=== PATIENT | female | born 1950 | race Two or more races ===

== ENCOUNTER 2018-07-12 17:45 | Inpatient (IN) | payer MEDICARE, OTHER ==
[2018-07-12] MEDS ORDERED: Haloperidol Lactate 5 mg/mL 1mL Vial ONE (18:08)
[2018-07-12 18:43] VITALS: BP 161/109
[2018-07-12] MEDS ORDERED: Haloperidol Lactate 5 mg/mL 1mL Vial IM STA (19:38)
[2018-07-12] MEDS ORDERED: [UNRECOGNIZED DRUG - OTHER] IM PRN ×2 (21:24→21:25)
[2018-07-12 22:54] LABS: URINE SOURCE MIDSTREAM
[2018-07-12 22:58] LABS: URINE BILIRUBIN NEGATIVE (NEGATIVE); URINE BLOOD NEGATIVE (NEGATIVE); URINE GLUCOSE (UA) NEGATIVE (NEGATIVE); URINE KETONE TRACE mg/dL (NEGATIVE); URINE LEUKOCYTE ESTERASE TRACE (NEGATIVE); URINE MICROSCOPIC INDICATED? YES; URINE NITRATE NEGATIVE (NEGATIVE); URINE PH 5.5 (4.6 - 8.0); URINE PROTEIN 100 mg/dL (NEGATIVE); URINE UROBILINOGEN 0.2 E.U./dL (0.2 - 1.0)
[2018-07-12 23:00] LABS: URINE CLARITY CLEAR (CLEAR); URINE COLOR YELLOW
[2018-07-12 23:13] LABS: URINE EPITHELIAL CELLS MODERATE /lpf (FEW); URINE RBC 0-2 /hpf (0-5)
[2018-07-12 23:14] LABS: URINE BACTERIA MODERATE /hpf (NONE SEEN)
--- NOTE | 2018-07-12 23:56 | Psychiatric Evaluation ---
DATE OF SERVICE: 07/12/2018 PSYCHIATRIC EVALUATION IDENTIFYING DATA: The patient is a 67-year-old -[place] woman admitted on a 5150 as a danger to others. CHIEF COMPLAINT: "I don't belong in here, get me out of here right now." HISTORY OF PRESENT ILLNESS: This is the first psychiatric hospitalization to this patient who is reported to have been getting aggressive towards the son and wanted to hurt him. The patient during the interview is not able to calm down and she has been screaming and yelling and the patient has to be medicated with Haldol 5 mg, Ativan 1 and Benadryl 50. The patient has been acting very irrationally and has been urinating on the floor. I am not able to get much information from the patient at this time. PAST PSYCHIATRIC HISTORY: Details are not known. MEDICAL HISTORY AND PHYSICAL EXAMINATION: Requested to be done by Dr. Lara. SUBSTANCE ABUSE HISTORY: Details are not known. SOCIAL HISTORY: The patient is reported to have been with her family. STRENGTH AND ASSETS: The patient is motivated. MENTAL STATUS EXAMINATION: The patient is a 67-year-old woman, looking her stated age, superficially cooperative. Eye contact is poor. Mood is noted to be irritable. Affect is constricted. Insight and judgment at this time are noted to be still impaired. Impulse control is noted to be poor. Coping skills are noted to be poor. The patient has been screaming and yelling and the patient is acutely psychotic and agitated. The patient could not be contained even with the emergency dose of medications. In view of this one, it is decided to observe the patient with the medications and then continue with the mental status examination tomorrow. DIAGNOSTIC IMPRESSION: AXIS I: Psychotic disorder, not otherwise specified. AXIS II: None. AXIS III: As per Dr. Lara. IMMEDIATE TREATMENT PLAN: The patient is going to be observed on the inpatient unit. Provided with supportive psychotherapy. The patient is going to be closely monitored. Once stabilized, the patient is going to be discharged to the family to be followed up on an outpatient basis. JOB# [id number]
[2018-07-13 07:46] LABS: ALB/GLOB RATIO 1.4 (1.0-1.8); ALBUMIN 4.1 gm/dL (3.7-5.3); ALKALINE PHOSPHATASE 69 U/L (34-104); ANION GAP 13.1 (7.0-16.0); BILIRUBIN,TOTAL 0.6 mg/dL (0.3-1.0); BUN - UREA NITROGEN 12 mg/dL (7-25); CALCIUM SERUM 9.7 mg/dL (8.6-10.3); CARBON DIOXIDE 25.8 mEq/L (21.0-31.0); CHLORIDE 101 mEq/L (98-107); CHOLESTEROL 198 mg/dL (<200); GFR AFRICAN-AMERICAN > 60.0 ml/min (>90); GLUCOSE 106 mg/dL (70-105); HDL -HIGH DENSITY LIPOPROTEIN 40 mg/dL (23-92); POTASSIUM SERUM 3.9 mEq/L (3.5-5.1); SGOT 45 U/L (13-39); SGPT/ALT 22 U/L (7-52); SODIUM SERUM 136 mEq/L (136-145); TRIGLYCERIDES 89 mg/dL (<150)
[2018-07-13] MEDS ORDERED: Non-Formulary Item 1 EA (Nifedipine [Nifedipine Er] 60 MG) PO SCH (09:00)
[2018-07-13] MEDS: NIFEdipine 30 mg ER Tab PO SCH (09:32)
--- NOTE | 2018-07-13 12:41 | History & Physical ---
ADMIT DATE: 07/12/2018 CHIEF COMPLAINT: Medical evaluation and clearance. HISTORY OF PRESENT ILLNESS: This is a 67-year-old -[place] female with history of stroke, multi infarct dementia, hypertension, and arthritis, admitted under the service of Dr. Child. The patient denies any fever, chills, no night sweats, weight loss, chest pain. PAST MEDICAL HISTORY: As mentioned in history present illness. PAST SURGICAL HISTORY: Status post left knee surgery. ALLERGIES: No known drug allergies. MEDICATIONS: The patient is on carvedilol, Plavix, Depakote, Lasix, olanzapine. FAMILY HISTORY: Noncontributory. SOCIAL HISTORY: The patient is in senior care. The patient stated that she smokes, drinks on occasion. Single with 4 children. Does a lot of other drugs. REVIEW OF SYSTEMS: GENERAL: Complains not feeling well. HEAD, EYES, EARS, NOSE, AND THROAT: No blurred vision. LUNGS: No diagnosis of COPD or asthma. HEART: Hypertension, history of stroke. ABDOMEN: No nausea, vomiting, or pain. GENITOURINARY: The patient denies increased frequency or dysuria. NEUROLOGIC: Headache. The patient has a history of stroke, no seizures. PSYCHIATRIC: As above. PHYSICAL EXAMINATION: VITAL SIGNS: Blood pressure 108/76, respiration 19, pulse 98, temperature 96, elderly female, appears stated age. NECK: Supple. No mass. LUNGS: Equal breath sounds, few rhonchi. HEART: Regular rate and rhythm. Systolic ejection murmur. ABDOMEN: Soft, globular. EXTREMITIES: Positive excoriation. NEUROLOGIC: Limited. LABORATORY DATA: CBC showed a hemoglobin of 11. Sodium 136, potassium 3.9, BUN 12, creatinine 1.0, blood sugar 106. UA moderate bacteria. ASSESSMENT AND PLAN: CVA, multi infarct dementia, bacteriuria, hypokalemia, which was corrected, anemia, hypertension, osteoarthritis. We will adjust the patient's antihypertensive medication. The patient is on Plavix. The patient is on diuretics. We will correct electrolyte abnormalities. Continue with current care. We will follow closely with you, . JOB# [id number]
[2018-07-13] MEDS ORDERED: NIFEdipine 30 mg ER Tab PO ONE (20:15)
--- NOTE | 2018-07-14 04:26 | Progress Notes ---
DATE: 07/13/2018 PSYCHIATRIC PROGRESS NOTE SUBJECTIVE: Staff was spoken to. The patient is interviewed. Mood is noted to be irritable. Affect is constricted. Insight and judgment are noted to be still impaired. Impulse control is noted to be poor. Coping skills are also noted to be very poor. The patient has been having difficult time to cope with the stress. The patient is screaming and yelling. The patient had to be given an emergency dose of medication yesterday and the patient has been coming down at this time. No side effects to the medications are noted at this time. ASSESSMENT: The patient is still psychotic and impulsive. PLAN: Continue the patient with the current medications and follow up. JOB# [id number]
[2018-07-14] MEDS: NIFEdipine 30 mg ER Tab PO SCH (09:00)
--- NOTE | 2018-07-14 12:08 | Internal Medicine Prog Note ---
Internal Medicine Subjective - Subjective Patient seen and examined:: with staff, chart reviewed Patient is:: awake, verbal, interactive, ambulating, denies any new complaints Patient Complaints of:: headache Per staff patient has:: no adverse event, no episodes of fall, eating well, noncompliant Internal Medicine Objective - Results Result Diagrams: 07/13/18 06:30 Recent Labs: Laboratory Last Values Sodium 136 mEq/L (136-145) 07/13/18 06:30 Potassium 3.9 mEq/L (3.5-5.1) 07/13/18 06:30 Chloride 101 mEq/L (98-107) 07/13/18 06:30 Carbon Dioxide 25.8 mEq/L (21.0-31.0) 07/13/18 06:30 Anion Gap 13.1 (7.0-16.0) 07/13/18 06:30 BUN 12 mg/dL (7-25) 07/13/18 06:30 Creatinine 1.0 mg/dL (0.6-1.2) 07/13/18 06:30 Est GFR ( Amer) > 60.0 ml/min (>90) 07/13/18 06:30 Est GFR (Non-Af Amer) 59.0 ml/min 07/13/18 06:30 BUN/Creatinine Ratio 12.0 07/13/18 06:30 Glucose 106 mg/dL (70-105) H 07/13/18 06:30 Calcium 9.7 mg/dL (8.6-10.3) 07/13/18 06:30 Total Bilirubin 0.6 mg/dL (0.3-1.0) 07/13/18 06:30 AST 45 U/L (13-39) H 07/13/18 06:30 ALT 22 U/L (7-52) 07/13/18 06:30 Alkaline Phosphatase 69 U/L (34-104) 07/13/18 06:30 Total Protein 7.0 gm/dL (6.0-8.3) 07/13/18 06:30 Albumin 4.1 gm/dL (3.7-5.3) 07/13/18 06:30 Globulin 2.9 gm/dL 07/13/18 06:30 Albumin/Globulin Ratio 1.4 (1.0-1.8) 07/13/18 06:30 Triglycerides 89 mg/dL (<150) 07/13/18 06:30 Cholesterol 198 mg/dL (<200) 07/13/18 06:30 LDL Cholesterol Direct 142 mg/dL (75-193) 07/13/18 06:30 HDL Cholesterol 40 mg/dL (23-92) 07/13/18 06:30 Urine Source MIDSTREAM 07/12/18 22:22 Urine Color YELLOW 07/12/18 22:22 Urine Clarity CLEAR (CLEAR) 07/12/18 22:22 Urine pH 5.5 (4.6 - 8.0) 07/12/18 22:22 Ur Specific [place] 1.025 (1.005-1.030) 07/12/18 22:22 Urine Protein 100 mg/dL (NEGATIVE) H 07/12/18 22:22 Urine Glucose (UA) NEGATIVE mg/dL (NEGATIVE) 07/12/18 22:22 Urine Ketones TRACE mg/dL (NEGATIVE) 07/12/18 22:22 Urine Blood NEGATIVE (NEGATIVE) 07/12/18 22:22 Urine Nitrate NEGATIVE (NEGATIVE) 07/12/18 22:22 Urine Bilirubin NEGATIVE (NEGATIVE) 07/12/18 22:22 Urine Urobilinogen 0.2 E.U./dL (0.2 - 1.0) 07/12/18 22:22 Ur Leukocyte Esterase TRACE (NEGATIVE) H 07/12/18 22:22 Urine RBC 0-2 /hpf (0-5) 07/12/18 22:22 Urine WBC 6-10 /hpf (0-5) H 07/12/18 22:22 Ur Epithelial Cells MODERATE /lpf (FEW) 07/12/18 22:22 Urine Bacteria MODERATE /hpf (NONE SEEN) H 07/12/18 22:22 Valproic Acid < 10.0 ug/mL (50.0-100.0) L 07/13/18 06:30 - Physical Exam Vitals and I&O: Vital Signs Temp 97.9 F 07/14/18 06:09 Pulse 86 07/14/18 09:10 Resp 20 07/14/18 06:09 BP 117/66 07/14/18 09:13 Pulse Ox 95 07/14/18 06:09 Intake & Output 07/13/18 07/14/18 07/14/18 18:59 06:59 18:59 Intake Total 360 Balance 360 Intake: Oral 360 Other: # Voids 2 # Bowel Movements 0 Active Medications: Current Medications Carvedilol (Coreg) 6.25 mg PO BIDS [facility] Stop: 09/11/18 07:59 Last Admin: 07/14/18 09:10 Dose: 6.25 mg Clopidogrel Bisulfate (Plavix) 75 mg PO DAILY [facility] Stop: 09/11/18 08:59 Last Admin: 07/14/18 09:14 Dose: 75 mg Divalproex Sodium (Depakote Dr) 250 mg PO BID [facility]; Protocol Stop: 09/11/18 08:59 Last Admin: 07/14/18 09:15 Dose: 250 mg Furosemide (Lasix) 20 mg PO DAILY [facility] Stop: 09/11/18 08:59 Last Admin: 07/14/18 09:13 Dose: 20 mg Gabapentin (Neurontin) 100 mg PO BID [facility] Stop: 09/11/18 08:59 Last Admin: 07/14/18 09:15 Dose: 100 mg Lorazepam (Ativan) 0.5 mg PO Q4HR PRN; Protocol PRN Reason: Anxiety Stop: 08/11/18 19:10 Last Admin: 07/14/18 09:14 Dose: 0.5 mg Miscellaneous (Ziprasidone Mesylate [Geodon]) 10 mg IM Q2HR PRN PRN Reason: Agitation Stop: 09/10/18 21:23 Nifedipine (Procardia Xl) 60 mg PO DAILY [facility] Stop: 09/11/18 08:59 Last Admin: 07/13/18 09:32 Dose: Not Given Olanzapine (Zyprexa) 5 mg PO BID [facility]; Protocol Stop: 09/11/18 08:59 Last Admin: 07/14/18 09:15 Dose: 5 mg Zolpidem Tartrate (Ambien) 5 mg PO HS PRN PRN Reason: Insomnia Stop: 09/10/18 19:10 General: demented HEENT: NC/AT, PERRLA, EOMI Neck: Supple, No JVD, No LAD Lungs: CTAB Cardiovascular: RRR, Normal S1, Normal S2, without murmur Abdomen: soft, non-tender, thin, non-distended, positive bowel sound Extremities: excoriation Neurological: no change Internal Medicine Assmt/Plan - Assessment Assessment: ASSESSMENT AND PLAN: CVA, multi infarct dementia, bacteriuria, hypokalemia, which was corrected, anemia, hypertension, osteoarthritis. - Plan Plan: PLAN: fall precaution We will adjust the patient's antihypertensive medication. The patient is on Plavix. The patient is on diuretics. We will correct electrolyte abnormalities. Continue with current care. We will follow closely
--- NOTE | 2018-07-15 03:39 | Consultation ---
DATE OF CONSULTATION: 07/13/2018 REFERRING PHYSICIAN: Raoul Sultana MD TYPE OF CONSULTATION: Psychology. HISTORY OF PRESENT ILLNESS: The patient is a 67-year-old -[place]og[place] female. The patient is being admitted on a 5150 as a danger to others. The following is by record review as well as by the patient's self report. Records indicate the patient had become aggressive towards her son and verbalized wanting to hurt him. The patient is having severe mood fluctuations during this clinical interview and is difficult to deescalate. The staff reports the patient has had multiple yelling episodes. The patient is not providing much information and is easily agitated and aggressive. The patient did not answer questions about experiencing suicidal or homicidal ideation, plan, or intention. PAST MEDICAL HISTORY: Please see history and physical by Dr. Lara. PAST PSYCHIATRIC HISTORY: Records are unavailable. Details are unknown. SUBSTANCE ABUSE HISTORY: The patient declined to answer these questions. PSYCHOSOCIAL HISTORY: Records indicate the patient had been living with her family. The patient did not answer questions about occupational or educational history. The patient is not answering questions relevantly or coherently and is exhibiting agitation. The record indicates the patient has a family member named Julio who is involved in her care. Records indicate the patient has a son, however, marital status is single. The patient did not answer questions about cheondoism affiliation. The patient did not answer questions about history of physical or sexual abuse or current legal problems. The patient did not answer questions about returning home or accepting placement. MENTAL STATUS EXAMINATION: The patient appears to be older than her stated age. The patient's attitude is uncooperative. Eye contact is poor. Mood is irritable and angry. Speech is loud and pressured. Affect is constricted. Thought process shows to be confused. The patient did not answer questions about experiencing suicidal or homicidal ideation, plan, or intention. She did not answer the questions about auditory or visual hallucinations or delusions. The patient's behavior has been very agitated. The patient is acutely psychotic and was unable to be contained by emergency medication. The patient's impulse control is impaired. Concentration is poor. The patient did not participate in the memory assessment. Sensorium is alert and oriented to self only. The patient did not participate in the interpretation of proverbs. Insight is impaired. Judgment is impaired. DIAGNOSTIC IMPRESSION: AXIS I: Psychotic disorder, not otherwise specified. 2: Impulse control disorder, not otherwise specified. AXIS II: Deferred. AXIS III: Per Dr. Lara. TREATMENT PLAN: The patient has been seen by Dr. Sultana for psychiatric evaluation and for the management of the patient's psychotropic medications. We will provide supportive psychotherapy to include reality orientation, differentiation, and integration. We will provide de-escalation and limit setting. We will provide anger management. We will provide motivational enhancement for the patient to become compliant and stay compliant with all aspects of her care and treatment. We will encourage the patient to demonstrate emotional and self-regulation and to verbalize her concerns versus acting out. We will encourage the patient on a daily basis to verbally contract for safety including no self-harm and no harm to others. We will provide coping strategies phase of life issues as well as for chronic severe mental illness. Thank you, Dr. Sultana, for this consult and the opportunity to participate in this patient's care. [facility]# [id number] JOHNNY
--- NOTE | 2018-07-15 11:45 | Internal Medicine Prog Note ---
Internal Medicine Subjective - Subjective Patient seen and examined:: with staff, chart reviewed Patient is:: awake, verbal, interactive, ambulating, denies any new complaints Patient Complaints of:: headache Per staff patient has:: no adverse event, no episodes of fall, eating well, noncompliant Internal Medicine Objective - Results Result Diagrams: 07/13/18 06:30 Recent Labs: Laboratory Last Values Sodium 136 mEq/L (136-145) 07/13/18 06:30 Potassium 3.9 mEq/L (3.5-5.1) 07/13/18 06:30 Chloride 101 mEq/L (98-107) 07/13/18 06:30 Carbon Dioxide 25.8 mEq/L (21.0-31.0) 07/13/18 06:30 Anion Gap 13.1 (7.0-16.0) 07/13/18 06:30 BUN 12 mg/dL (7-25) 07/13/18 06:30 Creatinine 1.0 mg/dL (0.6-1.2) 07/13/18 06:30 Est GFR ( Amer) > 60.0 ml/min (>90) 07/13/18 06:30 Est GFR (Non-Af Amer) 59.0 ml/min 07/13/18 06:30 BUN/Creatinine Ratio 12.0 07/13/18 06:30 Glucose 106 mg/dL (70-105) H 07/13/18 06:30 Calcium 9.7 mg/dL (8.6-10.3) 07/13/18 06:30 Total Bilirubin 0.6 mg/dL (0.3-1.0) 07/13/18 06:30 AST 45 U/L (13-39) H 07/13/18 06:30 ALT 22 U/L (7-52) 07/13/18 06:30 Alkaline Phosphatase 69 U/L (34-104) 07/13/18 06:30 Total Protein 7.0 gm/dL (6.0-8.3) 07/13/18 06:30 Albumin 4.1 gm/dL (3.7-5.3) 07/13/18 06:30 Globulin 2.9 gm/dL 07/13/18 06:30 Albumin/Globulin Ratio 1.4 (1.0-1.8) 07/13/18 06:30 Triglycerides 89 mg/dL (<150) 07/13/18 06:30 Cholesterol 198 mg/dL (<200) 07/13/18 06:30 LDL Cholesterol Direct 142 mg/dL (75-193) 07/13/18 06:30 HDL Cholesterol 40 mg/dL (23-92) 07/13/18 06:30 Urine Source MIDSTREAM 07/12/18 22:22 Urine Color YELLOW 07/12/18 22:22 Urine Clarity CLEAR (CLEAR) 07/12/18 22:22 Urine pH 5.5 (4.6 - 8.0) 07/12/18 22:22 Ur Specific [place] 1.025 (1.005-1.030) 07/12/18 22:22 Urine Protein 100 mg/dL (NEGATIVE) H 07/12/18 22:22 Urine Glucose (UA) NEGATIVE mg/dL (NEGATIVE) 07/12/18 22:22 Urine Ketones TRACE mg/dL (NEGATIVE) 07/12/18 22:22 Urine Blood NEGATIVE (NEGATIVE) 07/12/18 22:22 Urine Nitrate NEGATIVE (NEGATIVE) 07/12/18 22:22 Urine Bilirubin NEGATIVE (NEGATIVE) 07/12/18 22:22 Urine Urobilinogen 0.2 E.U./dL (0.2 - 1.0) 07/12/18 22:22 Ur Leukocyte Esterase TRACE (NEGATIVE) H 07/12/18 22:22 Urine RBC 0-2 /hpf (0-5) 07/12/18 22:22 Urine WBC 6-10 /hpf (0-5) H 07/12/18 22:22 Ur Epithelial Cells MODERATE /lpf (FEW) 07/12/18 22:22 Urine Bacteria MODERATE /hpf (NONE SEEN) H 07/12/18 22:22 Valproic Acid < 10.0 ug/mL (50.0-100.0) L 07/13/18 06:30 - Physical Exam Vitals and I&O: Vital Signs Temp 97.4 F 07/15/18 06:45 Pulse 64 07/15/18 08:39 Resp 19 07/15/18 06:45 BP 120/65 07/15/18 08:39 Pulse Ox 96 07/15/18 06:45 Intake & Output 07/14/18 07/15/18 07/15/18 18:59 06:59 18:59 Intake Total 900 180 Balance 900 180 Intake: Oral 900 180 Other: # Voids 3 3 # Bowel Movements 1 0 Active Medications: Current Medications Carvedilol (Coreg) 6.25 mg PO BIDS [facility] Stop: 09/11/18 07:59 Last Admin: 07/15/18 08:39 Dose: 6.25 mg Clopidogrel Bisulfate (Plavix) 75 mg PO DAILY [facility] Stop: 09/11/18 08:59 Last Admin: 07/15/18 08:41 Dose: 75 mg Divalproex Sodium (Depakote Dr) 250 mg PO BID [facility]; Protocol Stop: 09/11/18 08:59 Last Admin: 07/15/18 08:36 Dose: 250 mg Furosemide (Lasix) 20 mg PO DAILY [facility] Stop: 09/11/18 08:59 Last Admin: 07/15/18 08:37 Dose: 20 mg Gabapentin (Neurontin) 100 mg PO BID [facility] Stop: 09/11/18 08:59 Last Admin: 07/15/18 08:40 Dose: 100 mg Lorazepam (Ativan) 0.5 mg PO Q4HR PRN; Protocol PRN Reason: Anxiety Stop: 08/11/18 19:10 Last Admin: 07/15/18 08:39 Dose: 0.5 mg Nifedipine (Procardia Xl) 60 mg PO DAILY [facility] Stop: 09/11/18 08:59 Last Admin: 07/14/18 09:00 Dose: 60 mg Olanzapine (Zyprexa) 5 mg PO BID [facility]; Protocol Stop: 09/11/18 08:59 Last Admin: 07/15/18 08:36 Dose: 5 mg Zolpidem Tartrate (Ambien) 5 mg PO HS PRN PRN Reason: Insomnia Stop: 09/10/18 19:10 General: demented HEENT: NC/AT, PERRLA, EOMI Neck: Supple, No JVD, No LAD Lungs: CTAB Cardiovascular: RRR, Normal S1, Normal S2, without murmur Abdomen: soft, non-tender, thin, non-distended, positive bowel sound Extremities: excoriation Neurological: no change Internal Medicine Assmt/Plan - Assessment Assessment: ASSESSMENT AND PLAN: CVA, multi infarct dementia, bacteriuria, hypokalemia, which was corrected, anemia, hypertension, osteoarthritis. - Plan Plan: PLAN: fall precaution We will adjust the patient's antihypertensive medication. The patient is on Plavix. The patient is on diuretics. We will correct electrolyte abnormalities. Continue with current care. We will follow closely
--- NOTE | 2018-07-15 14:45 | Progress Notes ---
DATE: 07/14/2018 SUBJECTIVE: The patient was seen, remains irritable, anxious, still argumentative at times. The patient was asking when she is going home. On the other hand, she is taking her medication. Her sleep and appetite are fair. ASSESSMENT: The patient is still paranoid, still in psychotic phase. PLAN: We will continue Zyprexa 5 mg p.o. b.i.d. and continue current dose of Depakote and gabapentin. JOB# [id number]
--- NOTE | 2018-07-15 23:18 | Progress Notes ---
DATE: 07/15/2018 SUBJECTIVE: The patient was seen, remains restless, anxious, still intrusive, wandering on the unit, require redirecting by staff, continues to have some anger outbursts episodes, she is talking to herself. ASSESSMENT: The patient is in psychotic phase. PLAN: Continue Zyprexa 5 mg p.o. b.i.d. Continue supportive measures. The patient is also on Depakote 250 mg p.o. b.i.d. JOB# [id number]
[2018-07-16] MEDS: NIFEdipine 30 mg ER Tab PO SCH (08:40)
--- NOTE | 2018-07-16 10:32 | Internal Medicine Prog Note ---
Internal Medicine Subjective - Subjective Patient seen and examined:: with staff, chart reviewed Patient is:: awake, verbal, interactive, ambulating, denies any new complaints Patient Complaints of:: headache Per staff patient has:: no adverse event, no episodes of fall, eating well, noncompliant Internal Medicine Objective - Results Result Diagrams: 07/13/18 06:30 Recent Labs: Laboratory Last Values Sodium 136 mEq/L (136-145) 07/13/18 06:30 Potassium 3.9 mEq/L (3.5-5.1) 07/13/18 06:30 Chloride 101 mEq/L (98-107) 07/13/18 06:30 Carbon Dioxide 25.8 mEq/L (21.0-31.0) 07/13/18 06:30 Anion Gap 13.1 (7.0-16.0) 07/13/18 06:30 BUN 12 mg/dL (7-25) 07/13/18 06:30 Creatinine 1.0 mg/dL (0.6-1.2) 07/13/18 06:30 Est GFR ( Amer) > 60.0 ml/min (>90) 07/13/18 06:30 Est GFR (Non-Af Amer) 59.0 ml/min 07/13/18 06:30 BUN/Creatinine Ratio 12.0 07/13/18 06:30 Glucose 106 mg/dL (70-105) H 07/13/18 06:30 Calcium 9.7 mg/dL (8.6-10.3) 07/13/18 06:30 Total Bilirubin 0.6 mg/dL (0.3-1.0) 07/13/18 06:30 AST 45 U/L (13-39) H 07/13/18 06:30 ALT 22 U/L (7-52) 07/13/18 06:30 Alkaline Phosphatase 69 U/L (34-104) 07/13/18 06:30 Total Protein 7.0 gm/dL (6.0-8.3) 07/13/18 06:30 Albumin 4.1 gm/dL (3.7-5.3) 07/13/18 06:30 Globulin 2.9 gm/dL 07/13/18 06:30 Albumin/Globulin Ratio 1.4 (1.0-1.8) 07/13/18 06:30 Triglycerides 89 mg/dL (<150) 07/13/18 06:30 Cholesterol 198 mg/dL (<200) 07/13/18 06:30 LDL Cholesterol Direct 142 mg/dL (75-193) 07/13/18 06:30 HDL Cholesterol 40 mg/dL (23-92) 07/13/18 06:30 Urine Source MIDSTREAM 07/12/18 22:22 Urine Color YELLOW 07/12/18 22:22 Urine Clarity CLEAR (CLEAR) 07/12/18 22:22 Urine pH 5.5 (4.6 - 8.0) 07/12/18 22:22 Ur Specific [place] 1.025 (1.005-1.030) 07/12/18 22:22 Urine Protein 100 mg/dL (NEGATIVE) H 07/12/18 22:22 Urine Glucose (UA) NEGATIVE mg/dL (NEGATIVE) 07/12/18 22:22 Urine Ketones TRACE mg/dL (NEGATIVE) 07/12/18 22:22 Urine Blood NEGATIVE (NEGATIVE) 07/12/18 22:22 Urine Nitrate NEGATIVE (NEGATIVE) 07/12/18 22:22 Urine Bilirubin NEGATIVE (NEGATIVE) 07/12/18 22:22 Urine Urobilinogen 0.2 E.U./dL (0.2 - 1.0) 07/12/18 22:22 Ur Leukocyte Esterase TRACE (NEGATIVE) H 07/12/18 22:22 Urine RBC 0-2 /hpf (0-5) 07/12/18 22:22 Urine WBC 6-10 /hpf (0-5) H 07/12/18 22:22 Ur Epithelial Cells MODERATE /lpf (FEW) 07/12/18 22:22 Urine Bacteria MODERATE /hpf (NONE SEEN) H 07/12/18 22:22 Valproic Acid < 10.0 ug/mL (50.0-100.0) L 07/13/18 06:30 - Physical Exam Vitals and I&O: Vital Signs Temp 97.1 F 07/16/18 06:30 Pulse 83 07/16/18 08:40 Resp 18 07/16/18 06:30 BP 113/69 07/16/18 08:40 Pulse Ox 98 07/16/18 06:30 Intake & Output 07/15/18 07/16/18 07/16/18 18:59 06:59 18:59 Intake Total 1000 240 Balance 1000 240 Intake: Oral 1000 240 Other: # Voids 4 2 # Bowel Movements 1 0 Active Medications: Current Medications Carvedilol (Coreg) 6.25 mg PO BIDS [facility] Stop: 09/11/18 07:59 Last Admin: 07/16/18 08:40 Dose: 6.25 mg Clopidogrel Bisulfate (Plavix) 75 mg PO DAILY [facility] Stop: 09/11/18 08:59 Last Admin: 07/16/18 08:39 Dose: 75 mg Divalproex Sodium (Depakote Dr) 250 mg PO BID [facility]; Protocol Stop: 09/11/18 08:59 Last Admin: 07/16/18 08:39 Dose: 250 mg Furosemide (Lasix) 20 mg PO DAILY [facility] Stop: 09/11/18 08:59 Last Admin: 07/16/18 08:39 Dose: 20 mg Gabapentin (Neurontin) 100 mg PO BID [facility] Stop: 09/11/18 08:59 Last Admin: 07/16/18 08:40 Dose: 100 mg Lorazepam (Ativan) 0.5 mg PO Q4HR PRN; Protocol PRN Reason: Anxiety Stop: 08/11/18 19:10 Last Admin: 07/15/18 20:38 Dose: 0.5 mg Nifedipine (Procardia Xl) 60 mg PO DAILY [facility] Stop: 09/11/18 08:59 Last Admin: 07/16/18 08:40 Dose: 60 mg Olanzapine (Zyprexa) 5 mg PO BID [facility]; Protocol Stop: 09/11/18 08:59 Last Admin: 07/16/18 08:39 Dose: 5 mg Zolpidem Tartrate (Ambien) 5 mg PO HS PRN PRN Reason: Insomnia Stop: 09/10/18 19:10 General: demented HEENT: NC/AT, PERRLA, EOMI Neck: Supple, No JVD, No LAD Lungs: CTAB Cardiovascular: RRR, Normal S1, Normal S2, without murmur Abdomen: soft, non-tender, thin, non-distended, positive bowel sound Extremities: excoriation Neurological: no change Internal Medicine Assmt/Plan - Assessment Assessment: ASSESSMENT AND PLAN: CVA, multi infarct dementia, bacteriuria, hypokalemia, which was corrected, anemia, hypertension, osteoarthritis. - Plan Plan: PLAN: fall precaution We will adjust the patient's antihypertensive medication. The patient is on Plavix. The patient is on diuretics. We will correct electrolyte abnormalities. Continue with current care. We will follow closely
--- NOTE | 2018-07-17 03:29 | Progress Notes ---
DATE: 07/16/2018 SUBJECTIVE: I met with the patient, remains forgetful, confused, still irritable. The patient's appetite and sleep are fair. The patient continues to have poor insight into her problems. The patient's thought process is disorganized and she has some loose association. ASSESSMENT: The patient continues to require hospitalization. PLAN: We will continue Zyprexa and Depakote. Continue supportive measures. [facility]# [id number]
[2018-07-17] MEDS: NIFEdipine 30 mg ER Tab PO SCH (10:01)
--- NOTE | 2018-07-17 10:17 | Internal Medicine Prog Note ---
Internal Medicine Subjective - Subjective Service Date: 07/17/18 Patient is:: awake, verbal, interactive, ambulating, denies any new complaints Patient Complaints of:: headache Per staff patient has:: no adverse event, no episodes of fall, eating well, noncompliant Internal Medicine Objective - Results Result Diagrams: 07/13/18 06:30 Recent Labs: Laboratory Last Values Sodium 136 mEq/L (136-145) 07/13/18 06:30 Potassium 3.9 mEq/L (3.5-5.1) 07/13/18 06:30 Chloride 101 mEq/L (98-107) 07/13/18 06:30 Carbon Dioxide 25.8 mEq/L (21.0-31.0) 07/13/18 06:30 Anion Gap 13.1 (7.0-16.0) 07/13/18 06:30 BUN 12 mg/dL (7-25) 07/13/18 06:30 Creatinine 1.0 mg/dL (0.6-1.2) 07/13/18 06:30 Est GFR ( Amer) > 60.0 ml/min (>90) 07/13/18 06:30 Est GFR (Non-Af Amer) 59.0 ml/min 07/13/18 06:30 BUN/Creatinine Ratio 12.0 07/13/18 06:30 Glucose 106 mg/dL (70-105) H 07/13/18 06:30 Calcium 9.7 mg/dL (8.6-10.3) 07/13/18 06:30 Total Bilirubin 0.6 mg/dL (0.3-1.0) 07/13/18 06:30 AST 45 U/L (13-39) H 07/13/18 06:30 ALT 22 U/L (7-52) 07/13/18 06:30 Alkaline Phosphatase 69 U/L (34-104) 07/13/18 06:30 Total Protein 7.0 gm/dL (6.0-8.3) 07/13/18 06:30 Albumin 4.1 gm/dL (3.7-5.3) 07/13/18 06:30 Globulin 2.9 gm/dL 07/13/18 06:30 Albumin/Globulin Ratio 1.4 (1.0-1.8) 07/13/18 06:30 Triglycerides 89 mg/dL (<150) 07/13/18 06:30 Cholesterol 198 mg/dL (<200) 07/13/18 06:30 LDL Cholesterol Direct 142 mg/dL (75-193) 07/13/18 06:30 HDL Cholesterol 40 mg/dL (23-92) 07/13/18 06:30 Urine Source MIDSTREAM 07/12/18 22:22 Urine Color YELLOW 07/12/18 22:22 Urine Clarity CLEAR (CLEAR) 07/12/18 22:22 Urine pH 5.5 (4.6 - 8.0) 07/12/18 22:22 Ur Specific [place] 1.025 (1.005-1.030) 07/12/18 22:22 Urine Protein 100 mg/dL (NEGATIVE) H 07/12/18 22:22 Urine Glucose (UA) NEGATIVE mg/dL (NEGATIVE) 07/12/18 22:22 Urine Ketones TRACE mg/dL (NEGATIVE) 07/12/18 22:22 Urine Blood NEGATIVE (NEGATIVE) 07/12/18 22:22 Urine Nitrate NEGATIVE (NEGATIVE) 07/12/18 22:22 Urine Bilirubin NEGATIVE (NEGATIVE) 07/12/18 22:22 Urine Urobilinogen 0.2 E.U./dL (0.2 - 1.0) 07/12/18 22:22 Ur Leukocyte Esterase TRACE (NEGATIVE) H 07/12/18 22:22 Urine RBC 0-2 /hpf (0-5) 07/12/18 22:22 Urine WBC 6-10 /hpf (0-5) H 07/12/18 22:22 Ur Epithelial Cells MODERATE /lpf (FEW) 07/12/18 22:22 Urine Bacteria MODERATE /hpf (NONE SEEN) H 07/12/18 22:22 Valproic Acid < 10.0 ug/mL (50.0-100.0) L 07/13/18 06:30 - Physical Exam Vitals and I&O: Vital Signs Temp 97.2 F 07/17/18 06:19 Pulse 86 07/17/18 10:01 Resp 20 07/17/18 06:19 BP 126/83 07/17/18 10:02 Pulse Ox 94 07/17/18 06:19 Intake & Output 07/16/18 07/17/18 07/17/18 18:59 06:59 18:59 Intake Total 1000 660 Balance 1000 660 Intake: Oral 1000 660 Other: # Voids 4 2 # Bowel Movements 1 0 Active Medications: Current Medications Acetaminophen (Tylenol) 650 mg PO Q4H PRN PRN Reason: Pain Or Fever above 101 Stop: 09/14/18 11:31 Last Admin: 07/16/18 14:41 Dose: 650 mg Carvedilol (Coreg) 6.25 mg PO BIDBRS [facility] Stop: 09/11/18 07:59 Last Admin: 07/17/18 10:11 Dose: Not Given Clopidogrel Bisulfate (Plavix) 75 mg PO DAILY [facility] Stop: 09/11/18 08:59 Last Admin: 07/17/18 10:01 Dose: 75 mg Divalproex Sodium (Depakote Dr) 250 mg PO BID [facility]; Protocol Stop: 09/11/18 08:59 Last Admin: 07/17/18 10:01 Dose: 250 mg Furosemide (Lasix) 20 mg PO DAILY [facility] Stop: 09/11/18 08:59 Last Admin: 07/17/18 10:02 Dose: 20 mg Gabapentin (Neurontin) 100 mg PO BID [facility] Stop: 09/11/18 08:59 Last Admin: 07/17/18 10:02 Dose: 100 mg Lorazepam (Ativan) 0.5 mg PO Q4HR PRN; Protocol PRN Reason: Anxiety Stop: 08/11/18 19:10 Last Admin: 07/17/18 10:02 Dose: 0.5 mg Nifedipine (Procardia Xl) 60 mg PO DAILY [facility] Stop: 09/11/18 08:59 Last Admin: 07/17/18 10:01 Dose: 60 mg Olanzapine (Zyprexa) 5 mg PO BID [facility]; Protocol Stop: 09/11/18 08:59 Last Admin: 07/17/18 10:03 Dose: 5 mg Zolpidem Tartrate (Ambien) 5 mg PO HS PRN PRN Reason: Insomnia Stop: 09/10/18 19:10 General: demented HEENT: NC/AT, PERRLA, EOMI Neck: Supple, No JVD, No LAD Lungs: CTAB Cardiovascular: RRR, Normal S1, Normal S2, without murmur Abdomen: soft, non-tender, thin, non-distended, positive bowel sound Extremities: excoriation Neurological: no change Internal Medicine Assmt/Plan - Assessment Assessment: CVA, multi infarct dementia, bacteriuria, hypokalemia, which was corrected, anemia, hypertension, osteoarthritis. - Plan Plan: fall precautions continue current plan of care Nutritional Asmnt/Malnutr-PDOC - Dietary Evaluation Malnutrition Findings (Please click <Entered> for more info): Nutritional Asmnt/Malnutrition Start: 07/16/18 10: 40 Text: Status: Complete Freq: Protocol: Document 07/16/18 10:40 BRAYAN (Rec: 07/16/18 10:43 BRAYAN [email or web address]) Nutritional Asmnt/Malnutrition Patient General Information Nutritional Screening Moderate Risk Diagnosis psychosis Pertinent Medical Hx/Surgical Hx stroke, multi infarct dementia , HTN, arthritis, s/p left knee surgery Subjective Information Per EMR, PO intake 100%. Current Diet Order/ Nutrition Support regular Pertinent Medications lasix Pertinent Labs 07/13 Glucose 106 Nutritional Hx/Data Height 5 ft 5 in Height (Calculated Centimeters) 165.1 Current Weight (lbs) 145 lb Weight (Calculated Kilograms) 65.8 Weight (Calculated Grams) 04645.9 [place] Body Weight 125 Body Mass Index (BMI) 24.1 Weight Status Approriate GI Symptoms GI Symptoms None Last BM 07/15 Difficult in: None Skin Integrity/Comment: dryness Current %PO Good (75-100%) Estimated Nutritional Goals BEE in Kcals: Using Current wt Calories/Kcals/Kg 25-30 Kcals Calculated 4745-7594 Protein: Using Current wt Protein g/k.8-1 Protein Calculated 53-66 Fluid: ml 1650-1980ml (1ml/kcal) Nutritional Problem No current Nutrition Prob Problem N/A Malnutrition Alert Is there a minimum of two criteria No selected? Query Text:Check all the applicable criteria. A minimum of two criteria are recommended for diagnosis of either severe or non-severe malnutrition. Malnutrition Related to Morbid Obesity Malnutrition related to morbid obesity No Intervention/Recommendation Comments 1. Continue with regular diet as ordered. 2. Monitor PO intake, wt, labs and skin integrity 3. F/U as low risk in 7 days Expected Outcomes/Goals Expected Outcomes/Goals 1. PO intake to meet at least 75% of nutritional needs. 2. Wt stability, skin to remain intact, labs to approach WNL.
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
--- NOTE | 2018-07-18 00:57 | Progress Notes ---
DATE: 07/16/2018 PSYCHOLOGY PROGRESS NOTE SUBJECTIVE: The patient is seen and is interviewed. Case is discussed with staff. The patient presents as still irritable and confused. The staff reports the patient has episodes of being difficult to redirect. The patient appears to have poor insight into her illness. OBJECTIVE: Mood is irritable. Affect is constricted. Thought process shows to be confused and forgetful. The patient denied any suicidal ideation, plan, or intention. She denied any hallucinations or delusions. The patient's thought content includes loose associations. The patient's behavior is intermittently non-compliant with her care and treatment. ASSESSMENT AND PLAN: The patient's psychosis persists with poor impulse control. We provided reality orientation, differentiation, and integration. We provided coping strategies for chronic mental illness. We provided remotivation for the patient to become compliant with all aspects of her care and treatment. We encouraged the patient to demonstrate emotional and self-regulation and to verbalize her concerns versus acting out. We will follow up in 2 days to continue the present treatment if the patient remains admitted on the unit. [facility]# [id number] JOHNNY
[2018-07-18] MEDS: NIFEdipine 30 mg ER Tab PO SCH (09:00)
--- NOTE | 2018-07-18 16:04 | Internal Medicine Prog Note ---
Internal Medicine Subjective - Subjective Service Date: 07/18/18 Patient is:: awake, verbal, interactive, ambulating, denies any new complaints Patient Complaints of:: headache Per staff patient has:: no adverse event, no episodes of fall, eating well, noncompliant Internal Medicine Objective - Results Result Diagrams: 07/13/18 06:30 Recent Labs: Laboratory Last Values Sodium 136 mEq/L (136-145) 07/13/18 06:30 Potassium 3.9 mEq/L (3.5-5.1) 07/13/18 06:30 Chloride 101 mEq/L (98-107) 07/13/18 06:30 Carbon Dioxide 25.8 mEq/L (21.0-31.0) 07/13/18 06:30 Anion Gap 13.1 (7.0-16.0) 07/13/18 06:30 BUN 12 mg/dL (7-25) 07/13/18 06:30 Creatinine 1.0 mg/dL (0.6-1.2) 07/13/18 06:30 Est GFR ( Amer) > 60.0 ml/min (>90) 07/13/18 06:30 Est GFR (Non-Af Amer) 59.0 ml/min 07/13/18 06:30 BUN/Creatinine Ratio 12.0 07/13/18 06:30 Glucose 106 mg/dL (70-105) H 07/13/18 06:30 Calcium 9.7 mg/dL (8.6-10.3) 07/13/18 06:30 Total Bilirubin 0.6 mg/dL (0.3-1.0) 07/13/18 06:30 AST 45 U/L (13-39) H 07/13/18 06:30 ALT 22 U/L (7-52) 07/13/18 06:30 Alkaline Phosphatase 69 U/L (34-104) 07/13/18 06:30 Total Protein 7.0 gm/dL (6.0-8.3) 07/13/18 06:30 Albumin 4.1 gm/dL (3.7-5.3) 07/13/18 06:30 Globulin 2.9 gm/dL 07/13/18 06:30 Albumin/Globulin Ratio 1.4 (1.0-1.8) 07/13/18 06:30 Triglycerides 89 mg/dL (<150) 07/13/18 06:30 Cholesterol 198 mg/dL (<200) 07/13/18 06:30 LDL Cholesterol Direct 142 mg/dL (75-193) 07/13/18 06:30 HDL Cholesterol 40 mg/dL (23-92) 07/13/18 06:30 Urine Source MIDSTREAM 07/12/18 22:22 Urine Color YELLOW 07/12/18 22:22 Urine Clarity CLEAR (CLEAR) 07/12/18 22:22 Urine pH 5.5 (4.6 - 8.0) 07/12/18 22:22 Ur Specific [place] 1.025 (1.005-1.030) 07/12/18 22:22 Urine Protein 100 mg/dL (NEGATIVE) H 07/12/18 22:22 Urine Glucose (UA) NEGATIVE mg/dL (NEGATIVE) 07/12/18 22:22 Urine Ketones TRACE mg/dL (NEGATIVE) 07/12/18 22:22 Urine Blood NEGATIVE (NEGATIVE) 07/12/18 22:22 Urine Nitrate NEGATIVE (NEGATIVE) 07/12/18 22:22 Urine Bilirubin NEGATIVE (NEGATIVE) 07/12/18 22:22 Urine Urobilinogen 0.2 E.U./dL (0.2 - 1.0) 07/12/18 22:22 Ur Leukocyte Esterase TRACE (NEGATIVE) H 07/12/18 22:22 Urine RBC 0-2 /hpf (0-5) 07/12/18 22:22 Urine WBC 6-10 /hpf (0-5) H 07/12/18 22:22 Ur Epithelial Cells MODERATE /lpf (FEW) 07/12/18 22:22 Urine Bacteria MODERATE /hpf (NONE SEEN) H 07/12/18 22:22 Valproic Acid < 10.0 ug/mL (50.0-100.0) L 07/13/18 06:30 - Physical Exam Vitals and I&O: Vital Signs Temp 97.6 F 07/17/18 14:00 Pulse 110 07/17/18 17:14 Resp 20 07/18/18 08:00 BP 153/90 07/17/18 17:14 Pulse Ox 97 07/17/18 14:00 Intake & Output 07/17/18 07/18/18 07/18/18 18:59 06:59 18:59 Intake Total 1000 120 Balance 1000 120 Intake: Oral 1000 120 Other: # Voids 4 3 # Bowel Movements 1 Stool Characteristics Soft Active Medications: Current Medications Acetaminophen (Tylenol) 650 mg PO Q4H PRN PRN Reason: Pain Or Fever above 101 Stop: 09/14/18 11:31 Last Admin: 07/16/18 14:41 Dose: 650 mg Carvedilol (Coreg) 6.25 mg PO BIDBRS [facility] Stop: 09/11/18 07:59 Last Admin: 07/17/18 17:14 Dose: 6.25 mg Clopidogrel Bisulfate (Plavix) 75 mg PO DAILY [facility] Stop: 09/11/18 08:59 Last Admin: 07/17/18 10:01 Dose: 75 mg Divalproex Sodium (Depakote Dr) 250 mg PO BID [facility]; Protocol Stop: 09/11/18 08:59 Last Admin: 07/17/18 17:14 Dose: 250 mg Furosemide (Lasix) 20 mg PO DAILY [facility] Stop: 09/11/18 08:59 Last Admin: 07/17/18 10:02 Dose: 20 mg Gabapentin (Neurontin) 100 mg PO BID [facility] Stop: 09/11/18 08:59 Last Admin: 07/17/18 17:14 Dose: 100 mg Lorazepam (Ativan) 0.5 mg PO Q4HR PRN; Protocol PRN Reason: Anxiety Stop: 08/11/18 19:10 Last Admin: 07/18/18 01:19 Dose: 0.5 mg Nifedipine (Procardia Xl) 60 mg PO DAILY [facility] Stop: 09/11/18 08:59 Last Admin: 07/17/18 10:01 Dose: 60 mg Olanzapine (Zyprexa) 10 mg PO BID [facility]; Protocol Stop: 09/15/18 16:59 Last Admin: 07/17/18 17:14 Dose: 10 mg Zolpidem Tartrate (Ambien) 5 mg PO HS PRN PRN Reason: Insomnia Stop: 09/10/18 19:10 Last Admin: 07/17/18 22:15 Dose: 5 mg General: demented HEENT: NC/AT, PERRLA, EOMI Neck: Supple, No JVD, No LAD Lungs: CTAB Cardiovascular: RRR, Normal S1, Normal S2, without murmur Abdomen: soft, non-tender, thin, non-distended, positive bowel sound Extremities: excoriation Neurological: no change Internal Medicine Assmt/Plan - Assessment Assessment: CVA, multi infarct dementia, bacteriuria, hypokalemia, which was corrected, anemia, hypertension, osteoarthritis. - Plan Plan: fall precautions continue current plan of care Nutritional Asmnt/Malnutr-PDOC - Dietary Evaluation Malnutrition Findings (Please click <Entered> for more info): Nutritional Asmnt/Malnutrition Start: 07/16/18 10: 40 Text: Status: Complete Freq: Protocol: Document 07/16/18 10:40 LCHENG (Rec: 07/16/18 10:43 LCHENG [email or web address]) Nutritional Asmnt/Malnutrition Patient General Information Nutritional Screening Moderate Risk Diagnosis psychosis Pertinent Medical Hx/Surgical Hx stroke, multi infarct dementia , HTN, arthritis, s/p left knee surgery Subjective Information Per EMR, PO intake 100%. Current Diet Order/ Nutrition Support regular Pertinent Medications lasix Pertinent Labs 07/13 Glucose 106 Nutritional Hx/Data Height 5 ft 5 in Height (Calculated Centimeters) 165.1 Current Weight (lbs) 145 lb Weight (Calculated Kilograms) 65.8 Weight (Calculated Grams) 65526.9 [place] Body Weight 125 Body Mass Index (BMI) 24.1 Weight Status Approriate GI Symptoms GI Symptoms None Last BM 07/15 Difficult in: None Skin Integrity/Comment: dryness Current %PO Good (75-100%) Estimated Nutritional Goals BEE in Kcals: Using Current wt Calories/Kcals/Kg 25-30 Kcals Calculated 6936-1643 Protein: Using Current wt Protein g/k.8-1 Protein Calculated 53-66 Fluid: ml 1650-1980ml (1ml/kcal) Nutritional Problem No current Nutrition Prob Problem N/A Malnutrition Alert Is there a minimum of two criteria No selected? Query Text:Check all the applicable criteria. A minimum of two criteria are recommended for diagnosis of either severe or non-severe malnutrition. Malnutrition Related to Morbid Obesity Malnutrition related to morbid obesity No Intervention/Recommendation Comments 1. Continue with regular diet as ordered. 2. Monitor PO intake, wt, labs and skin integrity 3. F/U as low risk in 7 days Expected Outcomes/Goals Expected Outcomes/Goals 1. PO intake to meet at least 75% of nutritional needs. 2. Wt stability, skin to remain intact, labs to approach WNL.
--- NOTE | 2018-07-18 23:32 | Progress Notes ---
DATE: 07/18/2018 SUBJECTIVE: The patient was up and about. The patient came out of the activity room following another female resident, who was in the wheelchair. The two of them were yelling at one another. The patient reported that the other lady called her the "B" word. When the patient saw this expert medical writer, the patient stated that she wanted to talk to this expert medical writer. When asked what happened, the patient stated that other lady called her names first. When asked if she took her medication, the patient stated yes. The patient reported that she has been eating and sleeping okay. OBJECTIVE: The patient continued to be quite delusional; however, the patient seems to be somewhat better. The patient does not appear to be as delusional as yesterday. The patient did not say that people are listening in on our conversation like she did yesterday. Staff reported that the patient has been cooperative with care and treatment. She has taken her medications. She has been eating and sleeping okay. ASSESSMENT: The patient appeared to be doing somewhat better with the increase of her antipsychotic. PLAN: We will continue current medications and monitor the patient's behavior. JOB# [id number] JOHNNY
[2018-07-19] MEDS: NIFEdipine 30 mg ER Tab PO SCH (08:53)
--- NOTE | 2018-07-19 16:53 | Internal Medicine Prog Note ---
Internal Medicine Subjective - Subjective Service Date: 07/19/18 Patient is:: awake, verbal, interactive, ambulating, denies any new complaints Patient Complaints of:: headache Per staff patient has:: no adverse event, no episodes of fall, eating well, noncompliant Internal Medicine Objective - Results Result Diagrams: 07/13/18 06:30 Recent Labs: Laboratory Last Values Sodium 136 mEq/L (136-145) 07/13/18 06:30 Potassium 3.9 mEq/L (3.5-5.1) 07/13/18 06:30 Chloride 101 mEq/L (98-107) 07/13/18 06:30 Carbon Dioxide 25.8 mEq/L (21.0-31.0) 07/13/18 06:30 Anion Gap 13.1 (7.0-16.0) 07/13/18 06:30 BUN 12 mg/dL (7-25) 07/13/18 06:30 Creatinine 1.0 mg/dL (0.6-1.2) 07/13/18 06:30 Est GFR ( Amer) > 60.0 ml/min (>90) 07/13/18 06:30 Est GFR (Non-Af Amer) 59.0 ml/min 07/13/18 06:30 BUN/Creatinine Ratio 12.0 07/13/18 06:30 Glucose 106 mg/dL (70-105) H 07/13/18 06:30 Calcium 9.7 mg/dL (8.6-10.3) 07/13/18 06:30 Total Bilirubin 0.6 mg/dL (0.3-1.0) 07/13/18 06:30 AST 45 U/L (13-39) H 07/13/18 06:30 ALT 22 U/L (7-52) 07/13/18 06:30 Alkaline Phosphatase 69 U/L (34-104) 07/13/18 06:30 Total Protein 7.0 gm/dL (6.0-8.3) 07/13/18 06:30 Albumin 4.1 gm/dL (3.7-5.3) 07/13/18 06:30 Globulin 2.9 gm/dL 07/13/18 06:30 Albumin/Globulin Ratio 1.4 (1.0-1.8) 07/13/18 06:30 Triglycerides 89 mg/dL (<150) 07/13/18 06:30 Cholesterol 198 mg/dL (<200) 07/13/18 06:30 LDL Cholesterol Direct 142 mg/dL (75-193) 07/13/18 06:30 HDL Cholesterol 40 mg/dL (23-92) 07/13/18 06:30 Urine Source MIDSTREAM 07/12/18 22:22 Urine Color YELLOW 07/12/18 22:22 Urine Clarity CLEAR (CLEAR) 07/12/18 22:22 Urine pH 5.5 (4.6 - 8.0) 07/12/18 22:22 Ur Specific [place] 1.025 (1.005-1.030) 07/12/18 22:22 Urine Protein 100 mg/dL (NEGATIVE) H 07/12/18 22:22 Urine Glucose (UA) NEGATIVE mg/dL (NEGATIVE) 07/12/18 22:22 Urine Ketones TRACE mg/dL (NEGATIVE) 07/12/18 22:22 Urine Blood NEGATIVE (NEGATIVE) 07/12/18 22:22 Urine Nitrate NEGATIVE (NEGATIVE) 07/12/18 22:22 Urine Bilirubin NEGATIVE (NEGATIVE) 07/12/18 22:22 Urine Urobilinogen 0.2 E.U./dL (0.2 - 1.0) 07/12/18 22:22 Ur Leukocyte Esterase TRACE (NEGATIVE) H 07/12/18 22:22 Urine RBC 0-2 /hpf (0-5) 07/12/18 22:22 Urine WBC 6-10 /hpf (0-5) H 07/12/18 22:22 Ur Epithelial Cells MODERATE /lpf (FEW) 07/12/18 22:22 Urine Bacteria MODERATE /hpf (NONE SEEN) H 07/12/18 22:22 Valproic Acid < 10.0 ug/mL (50.0-100.0) L 07/13/18 06:30 - Physical Exam Vitals and I&O: Vital Signs Temp 97.0 F 07/19/18 14:41 Pulse 93 07/19/18 14:41 Resp 18 07/19/18 14:41 BP 131/59 07/19/18 14:41 Pulse Ox 97 07/19/18 14:41 Intake & Output 07/18/18 07/19/18 07/19/18 18:59 06:59 18:59 Intake Total 120 Balance 120 Intake: Oral 120 Other: # Voids 3 Active Medications: Current Medications Acetaminophen (Tylenol) 650 mg PO Q4H PRN PRN Reason: Pain Or Fever above 101 Stop: 09/14/18 11:31 Last Admin: 07/16/18 14:41 Dose: 650 mg Carvedilol (Coreg) 6.25 mg PO BIDBRS [facility] Stop: 09/11/18 07:59 Last Admin: 07/19/18 08:52 Dose: 6.25 mg Clopidogrel Bisulfate (Plavix) 75 mg PO DAILY [facility] Stop: 09/11/18 08:59 Last Admin: 07/19/18 08:52 Dose: 75 mg Divalproex Sodium (Depakote Dr) 250 mg PO BID [facility]; Protocol Stop: 09/11/18 08:59 Last Admin: 07/19/18 16:34 Dose: 250 mg Furosemide (Lasix) 20 mg PO DAILY [facility] Stop: 09/11/18 08:59 Last Admin: 07/19/18 08:53 Dose: 20 mg Gabapentin (Neurontin) 100 mg PO BID [facility] Stop: 09/11/18 08:59 Last Admin: 07/19/18 16:34 Dose: 100 mg Lorazepam (Ativan) 0.5 mg PO Q4HR PRN; Protocol PRN Reason: Anxiety Stop: 08/11/18 19:10 Last Admin: 07/19/18 08:56 Dose: 0.5 mg Nifedipine (Procardia Xl) 60 mg PO DAILY [facility] Stop: 09/11/18 08:59 Last Admin: 07/19/18 08:53 Dose: 60 mg Olanzapine (Zyprexa) 10 mg PO BID [facility]; Protocol Stop: 09/15/18 16:59 Last Admin: 07/19/18 16:33 Dose: 10 mg Zolpidem Tartrate (Ambien) 5 mg PO HS PRN PRN Reason: Insomnia Stop: 09/10/18 19:10 Last Admin: 07/18/18 20:57 Dose: 5 mg General: demented HEENT: NC/AT, PERRLA, EOMI Neck: Supple, No JVD, No LAD Lungs: CTAB Cardiovascular: RRR, Normal S1, Normal S2, without murmur Abdomen: soft, non-tender, thin, non-distended, positive bowel sound Extremities: excoriation Neurological: no change Internal Medicine Assmt/Plan - Assessment Assessment: CVA, multi infarct dementia, bacteriuria, hypokalemia, which was corrected, anemia, hypertension, osteoarthritis. - Plan Plan: fall precautions continue current plan of care Nutritional Asmnt/Malnutr-PDOC - Dietary Evaluation Malnutrition Findings (Please click <Entered> for more info): Nutritional Asmnt/Malnutrition Start: 07/16/18 10: 40 Text: Status: Complete Freq: Protocol: Document 07/16/18 10:40 LCKIRAG (Rec: 07/16/18 10:43 KIRAG [email or web address]) Nutritional Asmnt/Malnutrition Patient General Information Nutritional Screening Moderate Risk Diagnosis psychosis Pertinent Medical Hx/Surgical Hx stroke, multi infarct dementia , HTN, arthritis, s/p left knee surgery Subjective Information Per EMR, PO intake 100%. Current Diet Order/ Nutrition Support regular Pertinent Medications lasix Pertinent Labs 07/13 Glucose 106 Nutritional Hx/Data Height 5 ft 5 in Height (Calculated Centimeters) 165.1 Current Weight (lbs) 145 lb Weight (Calculated Kilograms) 65.8 Weight (Calculated Grams) 69000.9 [place] Body Weight 125 Body Mass Index (BMI) 24.1 Weight Status Approriate GI Symptoms GI Symptoms None Last BM 07/15 Difficult in: None Skin Integrity/Comment: dryness Current %PO Good (75-100%) Estimated Nutritional Goals BEE in Kcals: Using Current wt Calories/Kcals/Kg 25-30 Kcals Calculated 0491-9128 Protein: Using Current wt Protein g/k.8-1 Protein Calculated 53-66 Fluid: ml 1650-1980ml (1ml/kcal) Nutritional Problem No current Nutrition Prob Problem N/A Malnutrition Alert Is there a minimum of two criteria No selected? Query Text:Check all the applicable criteria. A minimum of two criteria are recommended for diagnosis of either severe or non-severe malnutrition. Malnutrition Related to Morbid Obesity Malnutrition related to morbid obesity No Intervention/Recommendation Comments 1. Continue with regular diet as ordered. 2. Monitor PO intake, wt, labs and skin integrity 3. F/U as low risk in 7 days Expected Outcomes/Goals Expected Outcomes/Goals 1. PO intake to meet at least 75% of nutritional needs. 2. Wt stability, skin to remain intact, labs to approach WNL.
--- NOTE | 2018-07-20 03:16 | Progress Notes ---
DATE: 07/19/2018 SUBJECTIVE: Staff was spoken to. The patient is interviewed. Mood is noted to be irritable. Affect is constricted. The patient is less visible than before. The patient is currently on mood stabilizer Depakote and olanzapine is being given at 20 mg twice a day. The patient has been able to tolerate the medication. Continues to be paranoid, but impulsive, seems to be coming under control. PLAN: To continue the patient with the supportive therapy and followup. JOB# [id number]
[2018-07-20] MEDS: NIFEdipine 30 mg ER Tab PO SCH (08:42)
--- NOTE | 2018-07-20 14:03 | Internal Medicine Prog Note ---
Internal Medicine Subjective - Subjective Service Date: 07/20/18 Patient is:: awake, verbal, interactive, ambulating, denies any new complaints Patient Complaints of:: headache Per staff patient has:: no adverse event, no episodes of fall, eating well, noncompliant Internal Medicine Objective - Results Result Diagrams: 07/13/18 06:30 Recent Labs: Laboratory Last Values Sodium 136 mEq/L (136-145) 07/13/18 06:30 Potassium 3.9 mEq/L (3.5-5.1) 07/13/18 06:30 Chloride 101 mEq/L (98-107) 07/13/18 06:30 Carbon Dioxide 25.8 mEq/L (21.0-31.0) 07/13/18 06:30 Anion Gap 13.1 (7.0-16.0) 07/13/18 06:30 BUN 12 mg/dL (7-25) 07/13/18 06:30 Creatinine 1.0 mg/dL (0.6-1.2) 07/13/18 06:30 Est GFR ( Amer) > 60.0 ml/min (>90) 07/13/18 06:30 Est GFR (Non-Af Amer) 59.0 ml/min 07/13/18 06:30 BUN/Creatinine Ratio 12.0 07/13/18 06:30 Glucose 106 mg/dL (70-105) H 07/13/18 06:30 Calcium 9.7 mg/dL (8.6-10.3) 07/13/18 06:30 Total Bilirubin 0.6 mg/dL (0.3-1.0) 07/13/18 06:30 AST 45 U/L (13-39) H 07/13/18 06:30 ALT 22 U/L (7-52) 07/13/18 06:30 Alkaline Phosphatase 69 U/L (34-104) 07/13/18 06:30 Total Protein 7.0 gm/dL (6.0-8.3) 07/13/18 06:30 Albumin 4.1 gm/dL (3.7-5.3) 07/13/18 06:30 Globulin 2.9 gm/dL 07/13/18 06:30 Albumin/Globulin Ratio 1.4 (1.0-1.8) 07/13/18 06:30 Triglycerides 89 mg/dL (<150) 07/13/18 06:30 Cholesterol 198 mg/dL (<200) 07/13/18 06:30 LDL Cholesterol Direct 142 mg/dL (75-193) 07/13/18 06:30 HDL Cholesterol 40 mg/dL (23-92) 07/13/18 06:30 Urine Source MIDSTREAM 07/12/18 22:22 Urine Color YELLOW 07/12/18 22:22 Urine Clarity CLEAR (CLEAR) 07/12/18 22:22 Urine pH 5.5 (4.6 - 8.0) 07/12/18 22:22 Ur Specific [place] 1.025 (1.005-1.030) 07/12/18 22:22 Urine Protein 100 mg/dL (NEGATIVE) H 07/12/18 22:22 Urine Glucose (UA) NEGATIVE mg/dL (NEGATIVE) 07/12/18 22:22 Urine Ketones TRACE mg/dL (NEGATIVE) 07/12/18 22:22 Urine Blood NEGATIVE (NEGATIVE) 07/12/18 22:22 Urine Nitrate NEGATIVE (NEGATIVE) 07/12/18 22:22 Urine Bilirubin NEGATIVE (NEGATIVE) 07/12/18 22:22 Urine Urobilinogen 0.2 E.U./dL (0.2 - 1.0) 07/12/18 22:22 Ur Leukocyte Esterase TRACE (NEGATIVE) H 07/12/18 22:22 Urine RBC 0-2 /hpf (0-5) 07/12/18 22:22 Urine WBC 6-10 /hpf (0-5) H 07/12/18 22:22 Ur Epithelial Cells MODERATE /lpf (FEW) 07/12/18 22:22 Urine Bacteria MODERATE /hpf (NONE SEEN) H 07/12/18 22:22 Valproic Acid < 10.0 ug/mL (50.0-100.0) L 07/13/18 06:30 - Physical Exam Vitals and I&O: Vital Signs Temp 99 F 07/20/18 06:26 Pulse 87 07/20/18 08:43 Resp 19 07/20/18 07:52 BP 134/77 07/20/18 08:43 Pulse Ox 96 07/20/18 06:26 Intake & Output 07/19/18 07/20/18 07/20/18 18:59 06:59 18:59 Intake Total 1000 240 Balance 1000 240 Intake: Oral 1000 240 Other: # Voids 3 3 # Bowel Movements 1 0 Active Medications: Current Medications Acetaminophen (Tylenol) 650 mg PO Q4H PRN PRN Reason: Pain Or Fever above 101 Stop: 09/14/18 11:31 Last Admin: 07/16/18 14:41 Dose: 650 mg Carvedilol (Coreg) 6.25 mg PO BIDBRS [facility] Stop: 09/11/18 07:59 Last Admin: 07/20/18 08:43 Dose: 6.25 mg Clopidogrel Bisulfate (Plavix) 75 mg PO DAILY [facility] Stop: 09/11/18 08:59 Last Admin: 07/20/18 08:42 Dose: 75 mg Divalproex Sodium (Depakote Dr) 250 mg PO BID [facility]; Protocol Stop: 09/11/18 08:59 Last Admin: 07/20/18 08:43 Dose: 250 mg Furosemide (Lasix) 20 mg PO DAILY [facility] Stop: 09/11/18 08:59 Last Admin: 07/20/18 08:43 Dose: 20 mg Gabapentin (Neurontin) 100 mg PO BID [facility] Stop: 09/11/18 08:59 Last Admin: 07/20/18 08:42 Dose: 100 mg Lorazepam (Ativan) 0.5 mg PO Q4HR PRN; Protocol PRN Reason: Anxiety Stop: 08/11/18 19:10 Last Admin: 07/19/18 08:56 Dose: 0.5 mg Nifedipine (Procardia Xl) 60 mg PO DAILY [facility] Stop: 09/11/18 08:59 Last Admin: 07/20/18 08:42 Dose: 60 mg Olanzapine (Zyprexa) 10 mg PO BID [facility]; Protocol Stop: 09/15/18 16:59 Last Admin: 07/20/18 08:42 Dose: 10 mg Zolpidem Tartrate (Ambien) 5 mg PO HS PRN PRN Reason: Insomnia Stop: 09/10/18 19:10 Last Admin: 07/19/18 21:16 Dose: 5 mg General: demented HEENT: NC/AT, PERRLA, EOMI Neck: Supple, No JVD, No LAD Lungs: CTAB Cardiovascular: RRR, Normal S1, Normal S2, without murmur Abdomen: soft, non-tender, thin, non-distended, positive bowel sound Extremities: excoriation Neurological: no change Internal Medicine Assmt/Plan - Assessment Assessment: CVA, multi infarct dementia, bacteriuria, hypokalemia, which was corrected, anemia, hypertension, osteoarthritis. - Plan Plan: fall precautions continue current plan of care Nutritional Asmnt/Malnutr-PDOC - Dietary Evaluation Malnutrition Findings (Please click <Entered> for more info): Nutritional Asmnt/Malnutrition Start: 07/16/18 10: 40 Text: Status: Complete Freq: Protocol: Document 07/16/18 10:40 KIRAG (Rec: 07/16/18 10:43 HEN [email or web address]) Nutritional Asmnt/Malnutrition Patient General Information Nutritional Screening Moderate Risk Diagnosis psychosis Pertinent Medical Hx/Surgical Hx stroke, multi infarct dementia , HTN, arthritis, s/p left knee surgery Subjective Information Per EMR, PO intake 100%. Current Diet Order/ Nutrition Support regular Pertinent Medications lasix Pertinent Labs 07/13 Glucose 106 Nutritional Hx/Data Height 5 ft 5 in Height (Calculated Centimeters) 165.1 Current Weight (lbs) 145 lb Weight (Calculated Kilograms) 65.8 Weight (Calculated Grams) 61677.9 [place] Body Weight 125 Body Mass Index (BMI) 24.1 Weight Status Approriate GI Symptoms GI Symptoms None Last BM 07/15 Difficult in: None Skin Integrity/Comment: dryness Current %PO Good (75-100%) Estimated Nutritional Goals BEE in Kcals: Using Current wt Calories/Kcals/Kg 25-30 Kcals Calculated 6119-8642 Protein: Using Current wt Protein g/k.8-1 Protein Calculated 53-66 Fluid: ml 1650-1980ml (1ml/kcal) Nutritional Problem No current Nutrition Prob Problem N/A Malnutrition Alert Is there a minimum of two criteria No selected? Query Text:Check all the applicable criteria. A minimum of two criteria are recommended for diagnosis of either severe or non-severe malnutrition. Malnutrition Related to Morbid Obesity Malnutrition related to morbid obesity No Intervention/Recommendation Comments 1. Continue with regular diet as ordered. 2. Monitor PO intake, wt, labs and skin integrity 3. F/U as low risk in 7 days Expected Outcomes/Goals Expected Outcomes/Goals 1. PO intake to meet at least 75% of nutritional needs. 2. Wt stability, skin to remain intact, labs to approach WNL.
--- NOTE | 2018-07-20 21:35 | Progress Notes ---
DATE: 07/19/2018 PSYCHOLOGY PROGRESS NOTE SUBJECTIVE: The patient is seen and is interviewed. Case is discussed with staff. The patient continues to present as easily agitated and irritable. The patient is guarded and suspicious. The staff reports the patient has been compliant with her medication. The patient continued to ask when she would be discharged. This is deferred to case management and the attending psychiatrist. OBJECTIVE: Mood is irritable. Affect is constricted. Thought process shows to be confused and markedly tangential. The patient did not answer questions about experiencing suicidal ideation, plan, or intention. She did not answer the questions about experiencing auditory or visual hallucinations; however, paranoid ideation persists. The patient's behavior has been less impulsive according to staff. ASSESSMENT AND PLAN: The patient's impulsivity is possibly coming under control. We will closely monitor this. We will provide de-escalation and limit setting. We encouraged the patient to demonstrate emotional and self-regulation and to verbalize her concerns versus acting out. We provided reality orientation, differentiation and integration. We provided coping strategies for phase of life issues as well as for chronic severe mental illness. We will follow up in 2-3 days to continue the present treatment if the patient is still admitted on the unit. JOB# [id number] JOHNNY
--- NOTE | 2018-07-21 06:18 | Progress Notes ---
DATE: 07/20/2018 PSYCHIATRIC PROGRESS NOTE SUBJECTIVE: Staff was spoken to. The patient is interviewed. Mood is noted to be irritable. Affect is constricted. The patient has paranoid delusions, but denies any command hallucinations. Insight and judgment at this time are noted to be still impaired. Impulse control is poor. The patient seems to be very angry and upset and is stating that she needs to talk to her son. The patient is currently on Depakote and olanzapine and has been able to tolerate the medication. In view of her impulsivity and paranoid delusions we are not able to discharge the patient to a lower level of care yet. JOB# [id number]
[2018-07-21] MEDS: NIFEdipine 30 mg ER Tab PO SCH (08:45)
--- NOTE | 2018-07-21 12:39 | Internal Medicine Prog Note ---
Internal Medicine Subjective - Subjective Service Date: 07/21/18 Patient is:: awake, verbal, interactive, ambulating, denies any new complaints Patient Complaints of:: headache Per staff patient has:: no adverse event, no episodes of fall, eating well, noncompliant Internal Medicine Objective - Results Result Diagrams: 07/13/18 06:30 Recent Labs: Laboratory Last Values Sodium 136 mEq/L (136-145) 07/13/18 06:30 Potassium 3.9 mEq/L (3.5-5.1) 07/13/18 06:30 Chloride 101 mEq/L (98-107) 07/13/18 06:30 Carbon Dioxide 25.8 mEq/L (21.0-31.0) 07/13/18 06:30 Anion Gap 13.1 (7.0-16.0) 07/13/18 06:30 BUN 12 mg/dL (7-25) 07/13/18 06:30 Creatinine 1.0 mg/dL (0.6-1.2) 07/13/18 06:30 Est GFR ( Amer) > 60.0 ml/min (>90) 07/13/18 06:30 Est GFR (Non-Af Amer) 59.0 ml/min 07/13/18 06:30 BUN/Creatinine Ratio 12.0 07/13/18 06:30 Glucose 106 mg/dL (70-105) H 07/13/18 06:30 Calcium 9.7 mg/dL (8.6-10.3) 07/13/18 06:30 Total Bilirubin 0.6 mg/dL (0.3-1.0) 07/13/18 06:30 AST 45 U/L (13-39) H 07/13/18 06:30 ALT 22 U/L (7-52) 07/13/18 06:30 Alkaline Phosphatase 69 U/L (34-104) 07/13/18 06:30 Total Protein 7.0 gm/dL (6.0-8.3) 07/13/18 06:30 Albumin 4.1 gm/dL (3.7-5.3) 07/13/18 06:30 Globulin 2.9 gm/dL 07/13/18 06:30 Albumin/Globulin Ratio 1.4 (1.0-1.8) 07/13/18 06:30 Triglycerides 89 mg/dL (<150) 07/13/18 06:30 Cholesterol 198 mg/dL (<200) 07/13/18 06:30 LDL Cholesterol Direct 142 mg/dL (75-193) 07/13/18 06:30 HDL Cholesterol 40 mg/dL (23-92) 07/13/18 06:30 Urine Source MIDSTREAM 07/12/18 22:22 Urine Color YELLOW 07/12/18 22:22 Urine Clarity CLEAR (CLEAR) 07/12/18 22:22 Urine pH 5.5 (4.6 - 8.0) 07/12/18 22:22 Ur Specific [place] 1.025 (1.005-1.030) 07/12/18 22:22 Urine Protein 100 mg/dL (NEGATIVE) H 07/12/18 22:22 Urine Glucose (UA) NEGATIVE mg/dL (NEGATIVE) 07/12/18 22:22 Urine Ketones TRACE mg/dL (NEGATIVE) 07/12/18 22:22 Urine Blood NEGATIVE (NEGATIVE) 07/12/18 22:22 Urine Nitrate NEGATIVE (NEGATIVE) 07/12/18 22:22 Urine Bilirubin NEGATIVE (NEGATIVE) 07/12/18 22:22 Urine Urobilinogen 0.2 E.U./dL (0.2 - 1.0) 07/12/18 22:22 Ur Leukocyte Esterase TRACE (NEGATIVE) H 07/12/18 22:22 Urine RBC 0-2 /hpf (0-5) 07/12/18 22:22 Urine WBC 6-10 /hpf (0-5) H 07/12/18 22:22 Ur Epithelial Cells MODERATE /lpf (FEW) 07/12/18 22:22 Urine Bacteria MODERATE /hpf (NONE SEEN) H 07/12/18 22:22 Valproic Acid < 10.0 ug/mL (50.0-100.0) L 07/13/18 06:30 - Physical Exam Vitals and I&O: Vital Signs Temp 98.6 F 07/21/18 06:07 Pulse 75 07/21/18 08:46 Resp 20 07/21/18 06:07 BP 128/78 07/21/18 08:46 Pulse Ox 98 07/21/18 06:07 Intake & Output 07/20/18 07/21/18 07/21/18 18:59 06:59 18:59 Intake Total 480 Balance 480 Intake: Oral 480 Other: # Voids 2 # Bowel Movements 1 0 Stool Characteristics Soft Soft Formed Formed [place] Brown Active Medications: Current Medications Acetaminophen (Tylenol) 650 mg PO Q4H PRN PRN Reason: Pain Or Fever above 101 Stop: 09/14/18 11:31 Last Admin: 07/16/18 14:41 Dose: 650 mg Carvedilol (Coreg) 6.25 mg PO BIDS [facility] Stop: 09/11/18 07:59 Last Admin: 07/21/18 08:46 Dose: 6.25 mg Clopidogrel Bisulfate (Plavix) 75 mg PO DAILY [facility] Stop: 09/11/18 08:59 Last Admin: 07/21/18 08:46 Dose: 75 mg Divalproex Sodium (Depakote Dr) 250 mg PO BID [facility]; Protocol Stop: 09/11/18 08:59 Last Admin: 07/21/18 08:46 Dose: 250 mg Furosemide (Lasix) 20 mg PO DAILY [facility] Stop: 09/11/18 08:59 Last Admin: 07/21/18 08:46 Dose: 20 mg Gabapentin (Neurontin) 100 mg PO BID [facility] Stop: 09/11/18 08:59 Last Admin: 07/21/18 08:46 Dose: 100 mg Lorazepam (Ativan) 0.5 mg PO Q4HR PRN; Protocol PRN Reason: Anxiety Stop: 08/11/18 19:10 Last Admin: 07/19/18 08:56 Dose: 0.5 mg Nifedipine (Procardia Xl) 60 mg PO DAILY [facility] Stop: 09/11/18 08:59 Last Admin: 07/21/18 08:45 Dose: 60 mg Olanzapine (Zyprexa) 10 mg PO BID [facility]; Protocol Stop: 09/15/18 16:59 Last Admin: 07/21/18 08:46 Dose: 10 mg Zolpidem Tartrate (Ambien) 5 mg PO HS PRN PRN Reason: Insomnia Stop: 09/10/18 19:10 Last Admin: 07/19/18 21:16 Dose: 5 mg General: demented HEENT: NC/AT, PERRLA, EOMI Neck: Supple, No JVD, No LAD Lungs: CTAB Cardiovascular: RRR, Normal S1, Normal S2, without murmur Abdomen: soft, non-tender, thin, non-distended, positive bowel sound Extremities: excoriation Neurological: no change Internal Medicine Assmt/Plan - Assessment Assessment: CVA, multi infarct dementia, bacteriuria, hypokalemia, which was corrected, anemia, hypertension, osteoarthritis. - Plan Plan: fall precautions continue current plan of care Nutritional Asmnt/Malnutr-PDOC - Dietary Evaluation Malnutrition Findings (Please click <Entered> for more info): Nutritional Asmnt/Malnutrition Start: 07/16/18 10: 40 Text: Status: Complete Freq: Protocol: Document 07/16/18 10:40 LCHENG (Rec: 07/16/18 10:43 LCHENG [email or web address]) Nutritional Asmnt/Malnutrition Patient General Information Nutritional Screening Moderate Risk Diagnosis psychosis Pertinent Medical Hx/Surgical Hx stroke, multi infarct dementia , HTN, arthritis, s/p left knee surgery Subjective Information Per EMR, PO intake 100%. Current Diet Order/ Nutrition Support regular Pertinent Medications lasix Pertinent Labs 07/13 Glucose 106 Nutritional Hx/Data Height 5 ft 5 in Height (Calculated Centimeters) 165.1 Current Weight (lbs) 145 lb Weight (Calculated Kilograms) 65.8 Weight (Calculated Grams) 17936.9 [place] Body Weight 125 Body Mass Index (BMI) 24.1 Weight Status Approriate GI Symptoms GI Symptoms None Last BM 07/15 Difficult in: None Skin Integrity/Comment: dryness Current %PO Good (75-100%) Estimated Nutritional Goals BEE in Kcals: Using Current wt Calories/Kcals/Kg 25-30 Kcals Calculated 1191-0059 Protein: Using Current wt Protein g/k.8-1 Protein Calculated 53-66 Fluid: ml 1650-1980ml (1ml/kcal) Nutritional Problem No current Nutrition Prob Problem N/A Malnutrition Alert Is there a minimum of two criteria No selected? Query Text:Check all the applicable criteria. A minimum of two criteria are recommended for diagnosis of either severe or non-severe malnutrition. Malnutrition Related to Morbid Obesity Malnutrition related to morbid obesity No Intervention/Recommendation Comments 1. Continue with regular diet as ordered. 2. Monitor PO intake, wt, labs and skin integrity 3. F/U as low risk in 7 days Expected Outcomes/Goals Expected Outcomes/Goals 1. PO intake to meet at least 75% of nutritional needs. 2. Wt stability, skin to remain intact, labs to approach WNL.
--- NOTE | 2018-07-21 14:47 | Progress Notes ---
DATE: 07/21/2018 SUBJECTIVE: Staff was spoken to. The patient is interviewed. Mood is noted to be irritable. Affect is constricted. Insight and judgment at this time are noted to be still impaired. The patient has paranoid delusions, but impulse control seems to be improving. No side effects to the medications are noted. manager infrastructure has been working with the patient to look for placement. ASSESSMENT: The patient is still psychotic and having mood swings. PLAN: To continue the patient with the supportive therapy and followup. JOB# [id number]
[2018-07-22] MEDS: NIFEdipine 30 mg ER Tab PO SCH (09:25)
--- NOTE | 2018-07-22 11:26 | Progress Notes ---
DATE: 07/22/2018 SUBJECTIVE: Staff was spoken to. The patient is interviewed. Mood is noted to be irritable. Affect is constricted. The patient is stating that she has been trying to get in touch with her son and has not been able to do so and getting frustrated. Coping skills at this time are noted to be very poor. Insight and judgment are noted to be limited. No side effects to the medications are noted at this time. ASSESSMENT: The patient's psychosis is resolving. PLAN: To continue the patient with the supportive therapy, encouraged the patient to verbalize the concerns rather than to act out. JOB# [id number]
--- NOTE | 2018-07-22 11:39 | Internal Medicine Prog Note ---
Internal Medicine Subjective - Subjective Service Date: 07/22/18 Patient is:: awake, verbal, interactive, ambulating, denies any new complaints Patient Complaints of:: headache Per staff patient has:: no adverse event, no episodes of fall, eating well, noncompliant Internal Medicine Objective - Results Result Diagrams: 07/13/18 06:30 Recent Labs: Laboratory Last Values Sodium 136 mEq/L (136-145) 07/13/18 06:30 Potassium 3.9 mEq/L (3.5-5.1) 07/13/18 06:30 Chloride 101 mEq/L (98-107) 07/13/18 06:30 Carbon Dioxide 25.8 mEq/L (21.0-31.0) 07/13/18 06:30 Anion Gap 13.1 (7.0-16.0) 07/13/18 06:30 BUN 12 mg/dL (7-25) 07/13/18 06:30 Creatinine 1.0 mg/dL (0.6-1.2) 07/13/18 06:30 Est GFR ( Amer) > 60.0 ml/min (>90) 07/13/18 06:30 Est GFR (Non-Af Amer) 59.0 ml/min 07/13/18 06:30 BUN/Creatinine Ratio 12.0 07/13/18 06:30 Glucose 106 mg/dL (70-105) H 07/13/18 06:30 Calcium 9.7 mg/dL (8.6-10.3) 07/13/18 06:30 Total Bilirubin 0.6 mg/dL (0.3-1.0) 07/13/18 06:30 AST 45 U/L (13-39) H 07/13/18 06:30 ALT 22 U/L (7-52) 07/13/18 06:30 Alkaline Phosphatase 69 U/L (34-104) 07/13/18 06:30 Total Protein 7.0 gm/dL (6.0-8.3) 07/13/18 06:30 Albumin 4.1 gm/dL (3.7-5.3) 07/13/18 06:30 Globulin 2.9 gm/dL 07/13/18 06:30 Albumin/Globulin Ratio 1.4 (1.0-1.8) 07/13/18 06:30 Triglycerides 89 mg/dL (<150) 07/13/18 06:30 Cholesterol 198 mg/dL (<200) 07/13/18 06:30 LDL Cholesterol Direct 142 mg/dL (75-193) 07/13/18 06:30 HDL Cholesterol 40 mg/dL (23-92) 07/13/18 06:30 Urine Source MIDSTREAM 07/12/18 22:22 Urine Color YELLOW 07/12/18 22:22 Urine Clarity CLEAR (CLEAR) 07/12/18 22:22 Urine pH 5.5 (4.6 - 8.0) 07/12/18 22:22 Ur Specific [place] 1.025 (1.005-1.030) 07/12/18 22:22 Urine Protein 100 mg/dL (NEGATIVE) H 07/12/18 22:22 Urine Glucose (UA) NEGATIVE mg/dL (NEGATIVE) 07/12/18 22:22 Urine Ketones TRACE mg/dL (NEGATIVE) 07/12/18 22:22 Urine Blood NEGATIVE (NEGATIVE) 07/12/18 22:22 Urine Nitrate NEGATIVE (NEGATIVE) 07/12/18 22:22 Urine Bilirubin NEGATIVE (NEGATIVE) 07/12/18 22:22 Urine Urobilinogen 0.2 E.U./dL (0.2 - 1.0) 07/12/18 22:22 Ur Leukocyte Esterase TRACE (NEGATIVE) H 07/12/18 22:22 Urine RBC 0-2 /hpf (0-5) 07/12/18 22:22 Urine WBC 6-10 /hpf (0-5) H 07/12/18 22:22 Ur Epithelial Cells MODERATE /lpf (FEW) 07/12/18 22:22 Urine Bacteria MODERATE /hpf (NONE SEEN) H 07/12/18 22:22 Valproic Acid < 10.0 ug/mL (50.0-100.0) L 07/13/18 06:30 - Physical Exam Vitals and I&O: Vital Signs Temp 97.3 F 07/22/18 06:32 Pulse 96 07/22/18 09:25 Resp 20 07/22/18 08:00 BP 138/85 07/22/18 09:26 Pulse Ox 97 07/22/18 06:32 Intake & Output 07/21/18 07/22/18 07/22/18 18:59 06:59 18:59 Intake Total 120 Balance 120 Intake: Oral 120 Other: # Voids 3 Stool Characteristics Soft Formed Brown Active Medications: Current Medications Acetaminophen (Tylenol) 650 mg PO Q4H PRN PRN Reason: Pain Or Fever above 101 Stop: 09/14/18 11:31 Last Admin: 07/16/18 14:41 Dose: 650 mg Carvedilol (Coreg) 6.25 mg PO BIDS [facility] Stop: 09/11/18 07:59 Last Admin: 07/22/18 09:25 Dose: 6.25 mg Clopidogrel Bisulfate (Plavix) 75 mg PO DAILY [facility] Stop: 09/11/18 08:59 Last Admin: 07/22/18 09:26 Dose: 75 mg Divalproex Sodium (Depakote Dr) 250 mg PO BID [facility]; Protocol Stop: 09/11/18 08:59 Last Admin: 07/22/18 09:26 Dose: 250 mg Furosemide (Lasix) 20 mg PO DAILY [facility] Stop: 09/11/18 08:59 Last Admin: 07/22/18 09:26 Dose: 20 mg Gabapentin (Neurontin) 100 mg PO BID [facility] Stop: 09/11/18 08:59 Last Admin: 07/22/18 09:26 Dose: 100 mg Lorazepam (Ativan) 0.5 mg PO Q4HR PRN; Protocol PRN Reason: Anxiety Stop: 08/11/18 19:10 Last Admin: 07/19/18 08:56 Dose: 0.5 mg Nifedipine (Procardia Xl) 60 mg PO DAILY [facility] Stop: 09/11/18 08:59 Last Admin: 07/22/18 09:25 Dose: 60 mg Olanzapine (Zyprexa) 10 mg PO BID [facility]; Protocol Stop: 09/15/18 16:59 Last Admin: 07/22/18 09:26 Dose: 10 mg Zolpidem Tartrate (Ambien) 5 mg PO HS PRN PRN Reason: Insomnia Stop: 09/10/18 19:10 Last Admin: 07/21/18 21:50 Dose: 5 mg General: demented HEENT: NC/AT, PERRLA, EOMI Neck: Supple, No JVD, No LAD Lungs: CTAB Cardiovascular: RRR, Normal S1, Normal S2, without murmur Abdomen: soft, non-tender, thin, non-distended, positive bowel sound Extremities: excoriation Neurological: no change Internal Medicine Assmt/Plan - Assessment Assessment: CVA, multi infarct dementia, bacteriuria, hypokalemia, which was corrected, anemia, hypertension, osteoarthritis. - Plan Plan: fall precautions continue current plan of care Nutritional Asmnt/Malnutr-PDOC - Dietary Evaluation Malnutrition Findings (Please click <Entered> for more info): Nutritional Asmnt/Malnutrition Start: 07/16/18 10: 40 Text: Status: Complete Freq: Protocol: Document 07/16/18 10:40 LCKIRAG (Rec: 07/16/18 10:43 LCHENG [email or web address]) Nutritional Asmnt/Malnutrition Patient General Information Nutritional Screening Moderate Risk Diagnosis psychosis Pertinent Medical Hx/Surgical Hx stroke, multi infarct dementia , HTN, arthritis, s/p left knee surgery Subjective Information Per EMR, PO intake 100%. Current Diet Order/ Nutrition Support regular Pertinent Medications lasix Pertinent Labs 07/13 Glucose 106 Nutritional Hx/Data Height 5 ft 5 in Height (Calculated Centimeters) 165.1 Current Weight (lbs) 145 lb Weight (Calculated Kilograms) 65.8 Weight (Calculated Grams) 19087.9 [place] Body Weight 125 Body Mass Index (BMI) 24.1 Weight Status Approriate GI Symptoms GI Symptoms None Last BM 07/15 Difficult in: None Skin Integrity/Comment: dryness Current %PO Good (75-100%) Estimated Nutritional Goals BEE in Kcals: Using Current wt Calories/Kcals/Kg 25-30 Kcals Calculated 6483-4746 Protein: Using Current wt Protein g/k.8-1 Protein Calculated 53-66 Fluid: ml 1650-1980ml (1ml/kcal) Nutritional Problem No current Nutrition Prob Problem N/A Malnutrition Alert Is there a minimum of two criteria No selected? Query Text:Check all the applicable criteria. A minimum of two criteria are recommended for diagnosis of either severe or non-severe malnutrition. Malnutrition Related to Morbid Obesity Malnutrition related to morbid obesity No Intervention/Recommendation Comments 1. Continue with regular diet as ordered. 2. Monitor PO intake, wt, labs and skin integrity 3. F/U as low risk in 7 days Expected Outcomes/Goals Expected Outcomes/Goals 1. PO intake to meet at least 75% of nutritional needs. 2. Wt stability, skin to remain intact, labs to approach WNL.
[2018-07-23] MEDS: NIFEdipine 30 mg ER Tab PO SCH (09:48)
--- NOTE | 2018-07-23 13:15 | Internal Medicine Prog Note ---
Internal Medicine Subjective - Subjective Service Date: 07/23/18 Patient is:: awake, verbal, interactive, ambulating, denies any new complaints Patient Complaints of:: headache Per staff patient has:: no adverse event, no episodes of fall, eating well, noncompliant Internal Medicine Objective - Results Result Diagrams: 07/13/18 06:30 Recent Labs: Laboratory Last Values Sodium 136 mEq/L (136-145) 07/13/18 06:30 Potassium 3.9 mEq/L (3.5-5.1) 07/13/18 06:30 Chloride 101 mEq/L (98-107) 07/13/18 06:30 Carbon Dioxide 25.8 mEq/L (21.0-31.0) 07/13/18 06:30 Anion Gap 13.1 (7.0-16.0) 07/13/18 06:30 BUN 12 mg/dL (7-25) 07/13/18 06:30 Creatinine 1.0 mg/dL (0.6-1.2) 07/13/18 06:30 Est GFR ( Amer) > 60.0 ml/min (>90) 07/13/18 06:30 Est GFR (Non-Af Amer) 59.0 ml/min 07/13/18 06:30 BUN/Creatinine Ratio 12.0 07/13/18 06:30 Glucose 106 mg/dL (70-105) H 07/13/18 06:30 Calcium 9.7 mg/dL (8.6-10.3) 07/13/18 06:30 Total Bilirubin 0.6 mg/dL (0.3-1.0) 07/13/18 06:30 AST 45 U/L (13-39) H 07/13/18 06:30 ALT 22 U/L (7-52) 07/13/18 06:30 Alkaline Phosphatase 69 U/L (34-104) 07/13/18 06:30 Total Protein 7.0 gm/dL (6.0-8.3) 07/13/18 06:30 Albumin 4.1 gm/dL (3.7-5.3) 07/13/18 06:30 Globulin 2.9 gm/dL 07/13/18 06:30 Albumin/Globulin Ratio 1.4 (1.0-1.8) 07/13/18 06:30 Triglycerides 89 mg/dL (<150) 07/13/18 06:30 Cholesterol 198 mg/dL (<200) 07/13/18 06:30 LDL Cholesterol Direct 142 mg/dL (75-193) 07/13/18 06:30 HDL Cholesterol 40 mg/dL (23-92) 07/13/18 06:30 Urine Source MIDSTREAM 07/12/18 22:22 Urine Color YELLOW 07/12/18 22:22 Urine Clarity CLEAR (CLEAR) 07/12/18 22:22 Urine pH 5.5 (4.6 - 8.0) 07/12/18 22:22 Ur Specific [place] 1.025 (1.005-1.030) 07/12/18 22:22 Urine Protein 100 mg/dL (NEGATIVE) H 07/12/18 22:22 Urine Glucose (UA) NEGATIVE mg/dL (NEGATIVE) 07/12/18 22:22 Urine Ketones TRACE mg/dL (NEGATIVE) 07/12/18 22:22 Urine Blood NEGATIVE (NEGATIVE) 07/12/18 22:22 Urine Nitrate NEGATIVE (NEGATIVE) 07/12/18 22:22 Urine Bilirubin NEGATIVE (NEGATIVE) 07/12/18 22:22 Urine Urobilinogen 0.2 E.U./dL (0.2 - 1.0) 07/12/18 22:22 Ur Leukocyte Esterase TRACE (NEGATIVE) H 07/12/18 22:22 Urine RBC 0-2 /hpf (0-5) 07/12/18 22:22 Urine WBC 6-10 /hpf (0-5) H 07/12/18 22:22 Ur Epithelial Cells MODERATE /lpf (FEW) 07/12/18 22:22 Urine Bacteria MODERATE /hpf (NONE SEEN) H 07/12/18 22:22 Valproic Acid < 10.0 ug/mL (50.0-100.0) L 07/13/18 06:30 - Physical Exam Vitals and I&O: Vital Signs Temp 97.4 F 07/22/18 20:00 Pulse 62 07/23/18 09:48 Resp 19 07/23/18 08:00 BP 123/74 07/23/18 09:48 Pulse Ox 93 07/22/18 20:00 Intake & Output 07/22/18 07/23/18 07/23/18 18:59 06:59 18:59 Intake Total 1500 120 Balance 1500 120 Intake: Oral 1500 120 Other: # Voids 3 3 # Bowel Movements 0 Active Medications: Current Medications Acetaminophen (Tylenol) 650 mg PO Q4H PRN PRN Reason: Pain Or Fever above 101 Stop: 09/14/18 11:31 Last Admin: 07/16/18 14:41 Dose: 650 mg Carvedilol (Coreg) 6.25 mg PO BIDBRS [facility] Stop: 09/11/18 07:59 Last Admin: 07/23/18 08:25 Dose: Not Given Clopidogrel Bisulfate (Plavix) 75 mg PO DAILY [facility] Stop: 09/11/18 08:59 Last Admin: 07/23/18 09:47 Dose: 75 mg Divalproex Sodium (Depakote Dr) 250 mg PO BID [facility]; Protocol Stop: 09/11/18 08:59 Last Admin: 07/23/18 09:49 Dose: 250 mg Furosemide (Lasix) 20 mg PO DAILY [facility] Stop: 09/11/18 08:59 Last Admin: 07/23/18 09:47 Dose: 20 mg Gabapentin (Neurontin) 100 mg PO BID [facility] Stop: 09/11/18 08:59 Last Admin: 07/23/18 09:49 Dose: 100 mg Lorazepam (Ativan) 0.5 mg PO Q4HR PRN; Protocol PRN Reason: Anxiety Stop: 08/11/18 19:10 Last Admin: 07/19/18 08:56 Dose: 0.5 mg Nifedipine (Procardia Xl) 60 mg PO DAILY [facility] Stop: 09/11/18 08:59 Last Admin: 07/23/18 09:48 Dose: 60 mg Olanzapine (Zyprexa) 10 mg PO BID [facility]; Protocol Stop: 09/15/18 16:59 Last Admin: 07/23/18 09:47 Dose: 10 mg Zolpidem Tartrate (Ambien) 5 mg PO HS PRN PRN Reason: Insomnia Stop: 09/10/18 19:10 Last Admin: 07/22/18 22:07 Dose: 5 mg General: demented HEENT: NC/AT, PERRLA, EOMI Neck: Supple, No JVD, No LAD Lungs: CTAB Cardiovascular: RRR, Normal S1, Normal S2, without murmur Abdomen: soft, non-tender, thin, non-distended, positive bowel sound Extremities: excoriation Neurological: no change Internal Medicine Assmt/Plan - Assessment Assessment: CVA, multi infarct dementia, bacteriuria, hypokalemia, which was corrected, anemia, hypertension, osteoarthritis. - Plan Plan: fall precautions continue current plan of care Nutritional Asmnt/Malnutr-PDOC - Dietary Evaluation Malnutrition Findings (Please click <Entered> for more info): Nutritional Asmnt/Malnutrition Start: 07/16/18 10: 40 Text: Status: Complete Freq: Protocol: Document 07/16/18 10:40 LCKIRAG (Rec: 07/16/18 10:43 KIRAG [email or web address]) Nutritional Asmnt/Malnutrition Patient General Information Nutritional Screening Moderate Risk Diagnosis psychosis Pertinent Medical Hx/Surgical Hx stroke, multi infarct dementia , HTN, arthritis, s/p left knee surgery Subjective Information Per EMR, PO intake 100%. Current Diet Order/ Nutrition Support regular Pertinent Medications lasix Pertinent Labs 07/13 Glucose 106 Nutritional Hx/Data Height 5 ft 5 in Height (Calculated Centimeters) 165.1 Current Weight (lbs) 145 lb Weight (Calculated Kilograms) 65.8 Weight (Calculated Grams) 49875.9 [place] Body Weight 125 Body Mass Index (BMI) 24.1 Weight Status Approriate GI Symptoms GI Symptoms None Last BM 07/15 Difficult in: None Skin Integrity/Comment: dryness Current %PO Good (75-100%) Estimated Nutritional Goals BEE in Kcals: Using Current wt Calories/Kcals/Kg 25-30 Kcals Calculated 3750-4347 Protein: Using Current wt Protein g/k.8-1 Protein Calculated 53-66 Fluid: ml 1650-1980ml (1ml/kcal) Nutritional Problem No current Nutrition Prob Problem N/A Malnutrition Alert Is there a minimum of two criteria No selected? Query Text:Check all the applicable criteria. A minimum of two criteria are recommended for diagnosis of either severe or non-severe malnutrition. Malnutrition Related to Morbid Obesity Malnutrition related to morbid obesity No Intervention/Recommendation Comments 1. Continue with regular diet as ordered. 2. Monitor PO intake, wt, labs and skin integrity 3. F/U as low risk in 7 days Expected Outcomes/Goals Expected Outcomes/Goals 1. PO intake to meet at least 75% of nutritional needs. 2. Wt stability, skin to remain intact, labs to approach WNL.
--- NOTE | 2018-07-23 21:27 | Progress Notes ---
DATE: 07/23/2018 SUBJECTIVE: Staff was spoken to. The patient is interviewed. Mood is noted to be irritable. Affect is constricted. The patient continues to be very paranoid. The patient is very guarded and suspicious. The patient's coping skills are noted to be still poor, but the patient is not screaming and yelling unlike before. No side effects to the medications are noted. Sleep and appetite not improving. ASSESSMENT: The patient's psychosis is resolving. PLAN: To continue the patient with the current medications. Encouraged the patient to verbalize the concerns rather than to act out. JOB# [id number]
[2018-07-24] MEDS: NIFEdipine 30 mg ER Tab PO SCH (08:07)
--- NOTE | 2018-07-24 13:23 | Internal Medicine Prog Note ---
Internal Medicine Subjective - Subjective Service Date: 07/24/18 Patient is:: awake, verbal, interactive, ambulating, denies any new complaints Patient Complaints of:: headache Per staff patient has:: no adverse event, no episodes of fall, eating well, noncompliant Internal Medicine Objective - Results Result Diagrams: 07/13/18 06:30 Recent Labs: Laboratory Last Values Sodium 136 mEq/L (136-145) 07/13/18 06:30 Potassium 3.9 mEq/L (3.5-5.1) 07/13/18 06:30 Chloride 101 mEq/L (98-107) 07/13/18 06:30 Carbon Dioxide 25.8 mEq/L (21.0-31.0) 07/13/18 06:30 Anion Gap 13.1 (7.0-16.0) 07/13/18 06:30 BUN 12 mg/dL (7-25) 07/13/18 06:30 Creatinine 1.0 mg/dL (0.6-1.2) 07/13/18 06:30 Est GFR ( Amer) > 60.0 ml/min (>90) 07/13/18 06:30 Est GFR (Non-Af Amer) 59.0 ml/min 07/13/18 06:30 BUN/Creatinine Ratio 12.0 07/13/18 06:30 Glucose 106 mg/dL (70-105) H 07/13/18 06:30 Calcium 9.7 mg/dL (8.6-10.3) 07/13/18 06:30 Total Bilirubin 0.6 mg/dL (0.3-1.0) 07/13/18 06:30 AST 45 U/L (13-39) H 07/13/18 06:30 ALT 22 U/L (7-52) 07/13/18 06:30 Alkaline Phosphatase 69 U/L (34-104) 07/13/18 06:30 Total Protein 7.0 gm/dL (6.0-8.3) 07/13/18 06:30 Albumin 4.1 gm/dL (3.7-5.3) 07/13/18 06:30 Globulin 2.9 gm/dL 07/13/18 06:30 Albumin/Globulin Ratio 1.4 (1.0-1.8) 07/13/18 06:30 Triglycerides 89 mg/dL (<150) 07/13/18 06:30 Cholesterol 198 mg/dL (<200) 07/13/18 06:30 LDL Cholesterol Direct 142 mg/dL (75-193) 07/13/18 06:30 HDL Cholesterol 40 mg/dL (23-92) 07/13/18 06:30 Urine Source MIDSTREAM 07/12/18 22:22 Urine Color YELLOW 07/12/18 22:22 Urine Clarity CLEAR (CLEAR) 07/12/18 22:22 Urine pH 5.5 (4.6 - 8.0) 07/12/18 22:22 Ur Specific [place] 1.025 (1.005-1.030) 07/12/18 22:22 Urine Protein 100 mg/dL (NEGATIVE) H 07/12/18 22:22 Urine Glucose (UA) NEGATIVE mg/dL (NEGATIVE) 07/12/18 22:22 Urine Ketones TRACE mg/dL (NEGATIVE) 07/12/18 22:22 Urine Blood NEGATIVE (NEGATIVE) 07/12/18 22:22 Urine Nitrate NEGATIVE (NEGATIVE) 07/12/18 22:22 Urine Bilirubin NEGATIVE (NEGATIVE) 07/12/18 22:22 Urine Urobilinogen 0.2 E.U./dL (0.2 - 1.0) 07/12/18 22:22 Ur Leukocyte Esterase TRACE (NEGATIVE) H 07/12/18 22:22 Urine RBC 0-2 /hpf (0-5) 07/12/18 22:22 Urine WBC 6-10 /hpf (0-5) H 07/12/18 22:22 Ur Epithelial Cells MODERATE /lpf (FEW) 07/12/18 22:22 Urine Bacteria MODERATE /hpf (NONE SEEN) H 07/12/18 22:22 Valproic Acid < 10.0 ug/mL (50.0-100.0) L 07/13/18 06:30 - Physical Exam Vitals and I&O: Vital Signs Temp 98.2 F 07/24/18 06:38 Pulse 91 07/24/18 08:07 Resp 19 07/24/18 08:00 BP 114/77 07/24/18 08:08 Pulse Ox 96 07/24/18 06:38 Intake & Output 07/23/18 07/24/18 07/24/18 18:59 06:59 18:59 Intake Total 1400 600 Output Total 240 Balance 1400 360 Intake: Oral 1400 480 Other 120 Output: Urine 240 Other: # Voids 3 # Bowel Movements 0 Active Medications: Current Medications Acetaminophen (Tylenol) 650 mg PO Q4H PRN PRN Reason: Pain Or Fever above 101 Stop: 09/14/18 11:31 Last Admin: 07/24/18 05:19 Dose: 650 mg Carvedilol (Coreg) 6.25 mg PO BIDS [facility] Stop: 09/11/18 07:59 Last Admin: 07/24/18 08:05 Dose: 6.25 mg Clopidogrel Bisulfate (Plavix) 75 mg PO DAILY [facility] Stop: 09/11/18 08:59 Last Admin: 07/24/18 08:06 Dose: 75 mg Divalproex Sodium (Depakote Dr) 250 mg PO BID [facility]; Protocol Stop: 09/11/18 08:59 Last Admin: 07/24/18 08:06 Dose: 250 mg Furosemide (Lasix) 20 mg PO DAILY [facility] Stop: 09/11/18 08:59 Last Admin: 07/24/18 08:08 Dose: 20 mg Gabapentin (Neurontin) 100 mg PO BID [facility] Stop: 09/11/18 08:59 Last Admin: 07/24/18 08:07 Dose: 100 mg Lorazepam (Ativan) 0.5 mg PO Q4HR PRN; Protocol PRN Reason: Anxiety Stop: 08/11/18 19:10 Last Admin: 07/24/18 08:08 Dose: 0.5 mg Nifedipine (Procardia Xl) 60 mg PO DAILY [facility] Stop: 09/11/18 08:59 Last Admin: 07/24/18 08:07 Dose: 60 mg Olanzapine (Zyprexa) 10 mg PO BID [facility]; Protocol Stop: 09/15/18 16:59 Last Admin: 07/24/18 08:06 Dose: 10 mg Zolpidem Tartrate (Ambien) 5 mg PO HS PRN PRN Reason: Insomnia Stop: 09/10/18 19:10 Last Admin: 07/23/18 20:53 Dose: 5 mg General: demented HEENT: NC/AT, PERRLA, EOMI Neck: Supple, No JVD, No LAD Lungs: CTAB Cardiovascular: RRR, Normal S1, Normal S2, without murmur Abdomen: soft, non-tender, thin, non-distended, positive bowel sound Extremities: excoriation Neurological: no change Internal Medicine Assmt/Plan - Assessment Assessment: CVA, multi infarct dementia, bacteriuria, hypokalemia, which was corrected, anemia, hypertension, osteoarthritis. - Plan Plan: fall precautions continue current plan of care Nutritional Asmnt/Malnutr-PDOC - Dietary Evaluation Malnutrition Findings (Please click <Entered> for more info): Nutritional Asmnt/Malnutrition Start: 07/16/18 10: 40 Text: Status: Complete Freq: Protocol: Document 07/16/18 10:40 LCHENG (Rec: 07/16/18 10:43 LCHENG [email or web address]) Nutritional Asmnt/Malnutrition Patient General Information Nutritional Screening Moderate Risk Diagnosis psychosis Pertinent Medical Hx/Surgical Hx stroke, multi infarct dementia , HTN, arthritis, s/p left knee surgery Subjective Information Per EMR, PO intake 100%. Current Diet Order/ Nutrition Support regular Pertinent Medications lasix Pertinent Labs 07/13 Glucose 106 Nutritional Hx/Data Height 5 ft 5 in Height (Calculated Centimeters) 165.1 Current Weight (lbs) 145 lb Weight (Calculated Kilograms) 65.8 Weight (Calculated Grams) 14169.9 [place] Body Weight 125 Body Mass Index (BMI) 24.1 Weight Status Approriate GI Symptoms GI Symptoms None Last BM 07/15 Difficult in: None Skin Integrity/Comment: dryness Current %PO Good (75-100%) Estimated Nutritional Goals BEE in Kcals: Using Current wt Calories/Kcals/Kg 25-30 Kcals Calculated 8374-9435 Protein: Using Current wt Protein g/k.8-1 Protein Calculated 53-66 Fluid: ml 1650-1980ml (1ml/kcal) Nutritional Problem No current Nutrition Prob Problem N/A Malnutrition Alert Is there a minimum of two criteria No selected? Query Text:Check all the applicable criteria. A minimum of two criteria are recommended for diagnosis of either severe or non-severe malnutrition. Malnutrition Related to Morbid Obesity Malnutrition related to morbid obesity No Intervention/Recommendation Comments 1. Continue with regular diet as ordered. 2. Monitor PO intake, wt, labs and skin integrity 3. F/U as low risk in 7 days Expected Outcomes/Goals Expected Outcomes/Goals 1. PO intake to meet at least 75% of nutritional needs. 2. Wt stability, skin to remain intact, labs to approach WNL.
--- NOTE | 2018-07-24 14:23 | Progress Notes ---
DATE: 07/24/2018 SUBJECTIVE: Staff was spoken to. The patient is interviewed. Mood is noted to be irritable. Affect is constricted. Coping skills are noted to be very poor today. The patient has been pacing on the unit. Paranoid delusions are noted, but the patient denies any command hallucinations. No side effects to the medications are noted. ASSESSMENT: The patient's psychosis is a major concern today. PLAN: To continue the patient with the supportive therapy, encouraged the patient to verbalize the concerns rather than to act out. JOB# [id number]
--- NOTE | 2018-07-24 19:41 | Progress Notes ---
DATE: 07/23/2018 PSYCHOLOY PROGRESS NOTE SUBJECTIVE: The patient is seen and is interviewed. Case is discussed with staff. The patient continues to present as irritable and guarded as well as suspicious. The patient is easily agitated. Staff reports that the patient continues to have yelling episodes. The patient is taking her p.o. medications. OBJECTIVE: Mood is irritable. Affect is constricted. Thought process shows to be confused and includes paranoid ideation. The patient did not answer questions about experiencing auditory or visual hallucinations. The patient's behavior is difficult to deescalate. ASSESSMENT AND PLAN: The patient's psychosis may be resolving. This needs further evaluation. We provided reality integration. We provided de-escalation and limit setting. We encouraged the patient to verbalize her concerns and demonstrate emotional and self-regulation. We provided remotivation for the patient to become compliant and stay compliant with her care and treatment. We provided coping strategies for phase of life issues as well as for chronic severe mental illness. We will follow up in 2 days if the patient continues to be admitted on the unit. JOB# [id number] [email or web address]
[2018-07-25] MEDS: NIFEdipine 30 mg ER Tab PO SCH (08:58)
--- NOTE | 2018-07-25 13:41 | Progress Notes ---
DATE: 07/25/2018 PSYCHIATRIC PROGRESS NOTE SUBJECTIVE: Staff was spoken to. The patient is interviewed. Mood is noted to be anxious and irritable. The patient is stating that she has been in here for too long. Insight and judgment at this time are noted to be improving. Impulse control seems to be fair. The patient's coping skills are also noted to be fair. The patient is not presenting with any major behavior problems today. booth manager has been spoken to with regards to possible discharge of the patient tomorrow. JOB# [id number]
--- NOTE | 2018-07-25 15:43 | Internal Medicine Prog Note ---
Internal Medicine Subjective - Subjective Service Date: 07/25/18 Patient is:: awake, verbal, interactive, ambulating, denies any new complaints Patient Complaints of:: headache Per staff patient has:: no adverse event, no episodes of fall, eating well, noncompliant Internal Medicine Objective - Results Result Diagrams: 07/13/18 06:30 Recent Labs: Laboratory Last Values Sodium 136 mEq/L (136-145) 07/13/18 06:30 Potassium 3.9 mEq/L (3.5-5.1) 07/13/18 06:30 Chloride 101 mEq/L (98-107) 07/13/18 06:30 Carbon Dioxide 25.8 mEq/L (21.0-31.0) 07/13/18 06:30 Anion Gap 13.1 (7.0-16.0) 07/13/18 06:30 BUN 12 mg/dL (7-25) 07/13/18 06:30 Creatinine 1.0 mg/dL (0.6-1.2) 07/13/18 06:30 Est GFR ( Amer) > 60.0 ml/min (>90) 07/13/18 06:30 Est GFR (Non-Af Amer) 59.0 ml/min 07/13/18 06:30 BUN/Creatinine Ratio 12.0 07/13/18 06:30 Glucose 106 mg/dL (70-105) H 07/13/18 06:30 Calcium 9.7 mg/dL (8.6-10.3) 07/13/18 06:30 Total Bilirubin 0.6 mg/dL (0.3-1.0) 07/13/18 06:30 AST 45 U/L (13-39) H 07/13/18 06:30 ALT 22 U/L (7-52) 07/13/18 06:30 Alkaline Phosphatase 69 U/L (34-104) 07/13/18 06:30 Total Protein 7.0 gm/dL (6.0-8.3) 07/13/18 06:30 Albumin 4.1 gm/dL (3.7-5.3) 07/13/18 06:30 Globulin 2.9 gm/dL 07/13/18 06:30 Albumin/Globulin Ratio 1.4 (1.0-1.8) 07/13/18 06:30 Triglycerides 89 mg/dL (<150) 07/13/18 06:30 Cholesterol 198 mg/dL (<200) 07/13/18 06:30 LDL Cholesterol Direct 142 mg/dL (75-193) 07/13/18 06:30 HDL Cholesterol 40 mg/dL (23-92) 07/13/18 06:30 Urine Source MIDSTREAM 07/12/18 22:22 Urine Color YELLOW 07/12/18 22:22 Urine Clarity CLEAR (CLEAR) 07/12/18 22:22 Urine pH 5.5 (4.6 - 8.0) 07/12/18 22:22 Ur Specific [place] 1.025 (1.005-1.030) 07/12/18 22:22 Urine Protein 100 mg/dL (NEGATIVE) H 07/12/18 22:22 Urine Glucose (UA) NEGATIVE mg/dL (NEGATIVE) 07/12/18 22:22 Urine Ketones TRACE mg/dL (NEGATIVE) 07/12/18 22:22 Urine Blood NEGATIVE (NEGATIVE) 07/12/18 22:22 Urine Nitrate NEGATIVE (NEGATIVE) 07/12/18 22:22 Urine Bilirubin NEGATIVE (NEGATIVE) 07/12/18 22:22 Urine Urobilinogen 0.2 E.U./dL (0.2 - 1.0) 07/12/18 22:22 Ur Leukocyte Esterase TRACE (NEGATIVE) H 07/12/18 22:22 Urine RBC 0-2 /hpf (0-5) 07/12/18 22:22 Urine WBC 6-10 /hpf (0-5) H 07/12/18 22:22 Ur Epithelial Cells MODERATE /lpf (FEW) 07/12/18 22:22 Urine Bacteria MODERATE /hpf (NONE SEEN) H 07/12/18 22:22 Valproic Acid < 10.0 ug/mL (50.0-100.0) L 07/13/18 06:30 - Physical Exam Vitals and I&O: Vital Signs Temp 98.0 F 07/25/18 14:00 Pulse 97 07/25/18 14:00 Resp 19 07/25/18 14:00 BP 130/81 07/25/18 14:00 Pulse Ox 98 07/25/18 14:00 Intake & Output 07/24/18 07/25/18 07/25/18 18:59 06:59 18:59 Intake Total 950 120 Balance 950 120 Intake: Oral 950 120 Other: # Voids 4 2 # Bowel Movements 1 0 Active Medications: Current Medications Acetaminophen (Tylenol) 650 mg PO Q4H PRN PRN Reason: Pain Or Fever above 101 Stop: 09/14/18 11:31 Last Admin: 07/24/18 19:42 Dose: 650 mg Carvedilol (Coreg) 6.25 mg PO BIDBRS [facility] Stop: 09/11/18 07:59 Last Admin: 07/25/18 08:58 Dose: Not Given Clopidogrel Bisulfate (Plavix) 75 mg PO DAILY [facility] Stop: 09/11/18 08:59 Last Admin: 07/25/18 08:57 Dose: 75 mg Divalproex Sodium (Depakote Dr) 250 mg PO BID [facility]; Protocol Stop: 09/11/18 08:59 Last Admin: 07/25/18 08:58 Dose: 250 mg Furosemide (Lasix) 20 mg PO DAILY [facility] Stop: 09/11/18 08:59 Last Admin: 07/25/18 08:58 Dose: Not Given Gabapentin (Neurontin) 100 mg PO BID [facility] Stop: 09/11/18 08:59 Last Admin: 07/25/18 08:58 Dose: 100 mg Lorazepam (Ativan) 0.5 mg PO Q4HR PRN; Protocol PRN Reason: Anxiety Stop: 08/11/18 19:10 Last Admin: 07/24/18 17:28 Dose: 0.5 mg Nifedipine (Procardia Xl) 60 mg PO DAILY [facility] Stop: 09/11/18 08:59 Last Admin: 07/25/18 08:58 Dose: Not Given Olanzapine (Zyprexa) 10 mg PO BID [facility]; Protocol Stop: 09/15/18 16:59 Last Admin: 07/25/18 08:57 Dose: 10 mg Zolpidem Tartrate (Ambien) 5 mg PO HS PRN PRN Reason: Insomnia Stop: 09/10/18 19:10 Last Admin: 07/24/18 22:23 Dose: 5 mg General: demented HEENT: NC/AT, PERRLA, EOMI Neck: Supple, No JVD, No LAD Lungs: CTAB Cardiovascular: RRR, Normal S1, Normal S2, without murmur Abdomen: soft, non-tender, thin, non-distended, positive bowel sound Extremities: excoriation Neurological: no change Internal Medicine Assmt/Plan - Assessment Assessment: CVA, multi infarct dementia, bacteriuria, hypokalemia, which was corrected, anemia, hypertension, osteoarthritis. - Plan Plan: fall precautions continue current plan of care Nutritional Asmnt/Malnutr-PDOC - Dietary Evaluation Malnutrition Findings (Please click <Entered> for more info): Nutritional Asmnt/Malnutrition Start: 07/16/18 10: 40 Text: Status: Complete Freq: Protocol: Document 07/16/18 10:40 KIRAG (Rec: 07/16/18 10:43 HEN [email or web address]) Nutritional Asmnt/Malnutrition Patient General Information Nutritional Screening Moderate Risk Diagnosis psychosis Pertinent Medical Hx/Surgical Hx stroke, multi infarct dementia , HTN, arthritis, s/p left knee surgery Subjective Information Per EMR, PO intake 100%. Current Diet Order/ Nutrition Support regular Pertinent Medications lasix Pertinent Labs 07/13 Glucose 106 Nutritional Hx/Data Height 5 ft 5 in Height (Calculated Centimeters) 165.1 Current Weight (lbs) 145 lb Weight (Calculated Kilograms) 65.8 Weight (Calculated Grams) 46897.9 [place] Body Weight 125 Body Mass Index (BMI) 24.1 Weight Status Approriate GI Symptoms GI Symptoms None Last BM 07/15 Difficult in: None Skin Integrity/Comment: dryness Current %PO Good (75-100%) Estimated Nutritional Goals BEE in Kcals: Using Current wt Calories/Kcals/Kg 25-30 Kcals Calculated 1601-3327 Protein: Using Current wt Protein g/k.8-1 Protein Calculated 53-66 Fluid: ml 1650-1980ml (1ml/kcal) Nutritional Problem No current Nutrition Prob Problem N/A Malnutrition Alert Is there a minimum of two criteria No selected? Query Text:Check all the applicable criteria. A minimum of two criteria are recommended for diagnosis of either severe or non-severe malnutrition. Malnutrition Related to Morbid Obesity Malnutrition related to morbid obesity No Intervention/Recommendation Comments 1. Continue with regular diet as ordered. 2. Monitor PO intake, wt, labs and skin integrity 3. F/U as low risk in 7 days Expected Outcomes/Goals Expected Outcomes/Goals 1. PO intake to meet at least 75% of nutritional needs. 2. Wt stability, skin to remain intact, labs to approach WNL.
[2018-07-26] MEDS: NIFEdipine 30 mg ER Tab PO SCH (08:47)
--- NOTE | 2018-07-26 12:18 | Internal Medicine Prog Note ---
Internal Medicine Subjective - Subjective Patient seen and examined:: with staff, chart reviewed Patient is:: awake, verbal, interactive, ambulating, denies any new complaints Patient Complaints of:: headache Per staff patient has:: no adverse event, no episodes of fall, eating well, noncompliant Internal Medicine Objective - Results Result Diagrams: 07/13/18 06:30 Recent Labs: Laboratory Last Values Sodium 136 mEq/L (136-145) 07/13/18 06:30 Potassium 3.9 mEq/L (3.5-5.1) 07/13/18 06:30 Chloride 101 mEq/L (98-107) 07/13/18 06:30 Carbon Dioxide 25.8 mEq/L (21.0-31.0) 07/13/18 06:30 Anion Gap 13.1 (7.0-16.0) 07/13/18 06:30 BUN 12 mg/dL (7-25) 07/13/18 06:30 Creatinine 1.0 mg/dL (0.6-1.2) 07/13/18 06:30 Est GFR ( Amer) > 60.0 ml/min (>90) 07/13/18 06:30 Est GFR (Non-Af Amer) 59.0 ml/min 07/13/18 06:30 BUN/Creatinine Ratio 12.0 07/13/18 06:30 Glucose 106 mg/dL (70-105) H 07/13/18 06:30 Calcium 9.7 mg/dL (8.6-10.3) 07/13/18 06:30 Total Bilirubin 0.6 mg/dL (0.3-1.0) 07/13/18 06:30 AST 45 U/L (13-39) H 07/13/18 06:30 ALT 22 U/L (7-52) 07/13/18 06:30 Alkaline Phosphatase 69 U/L (34-104) 07/13/18 06:30 Total Protein 7.0 gm/dL (6.0-8.3) 07/13/18 06:30 Albumin 4.1 gm/dL (3.7-5.3) 07/13/18 06:30 Globulin 2.9 gm/dL 07/13/18 06:30 Albumin/Globulin Ratio 1.4 (1.0-1.8) 07/13/18 06:30 Triglycerides 89 mg/dL (<150) 07/13/18 06:30 Cholesterol 198 mg/dL (<200) 07/13/18 06:30 LDL Cholesterol Direct 142 mg/dL (75-193) 07/13/18 06:30 HDL Cholesterol 40 mg/dL (23-92) 07/13/18 06:30 Urine Source MIDSTREAM 07/12/18 22:22 Urine Color YELLOW 07/12/18 22:22 Urine Clarity CLEAR (CLEAR) 07/12/18 22:22 Urine pH 5.5 (4.6 - 8.0) 07/12/18 22:22 Ur Specific [place] 1.025 (1.005-1.030) 07/12/18 22:22 Urine Protein 100 mg/dL (NEGATIVE) H 07/12/18 22:22 Urine Glucose (UA) NEGATIVE mg/dL (NEGATIVE) 07/12/18 22:22 Urine Ketones TRACE mg/dL (NEGATIVE) 07/12/18 22:22 Urine Blood NEGATIVE (NEGATIVE) 07/12/18 22:22 Urine Nitrate NEGATIVE (NEGATIVE) 07/12/18 22:22 Urine Bilirubin NEGATIVE (NEGATIVE) 07/12/18 22:22 Urine Urobilinogen 0.2 E.U./dL (0.2 - 1.0) 07/12/18 22:22 Ur Leukocyte Esterase TRACE (NEGATIVE) H 07/12/18 22:22 Urine RBC 0-2 /hpf (0-5) 07/12/18 22:22 Urine WBC 6-10 /hpf (0-5) H 07/12/18 22:22 Ur Epithelial Cells MODERATE /lpf (FEW) 07/12/18 22:22 Urine Bacteria MODERATE /hpf (NONE SEEN) H 07/12/18 22:22 Valproic Acid < 10.0 ug/mL (50.0-100.0) L 07/13/18 06:30 - Physical Exam Vitals and I&O: Vital Signs Temp 98.9 F 07/26/18 05:32 Pulse 75 07/26/18 05:32 Resp 20 07/26/18 05:32 BP 120/66 07/26/18 05:32 Pulse Ox 100 07/26/18 05:32 Intake & Output 07/25/18 07/26/18 07/26/18 18:59 06:59 18:59 Intake Total 1320 480 Balance 1320 480 Intake: Oral 1200 480 Other 120 Other: # Voids 4 2 # Bowel Movements 0 Active Medications: Current Medications Acetaminophen (Tylenol) 650 mg PO Q4H PRN PRN Reason: Pain Or Fever above 101 Stop: 09/14/18 11:31 Last Admin: 07/26/18 05:04 Dose: 650 mg Carvedilol (Coreg) 6.25 mg PO BIDBRS [facility] Stop: 09/11/18 07:59 Last Admin: 07/26/18 08:46 Dose: Not Given Clopidogrel Bisulfate (Plavix) 75 mg PO DAILY [facility] Stop: 09/11/18 08:59 Last Admin: 07/26/18 08:47 Dose: 75 mg Divalproex Sodium (Depakote Dr) 250 mg PO BID [facility]; Protocol Stop: 09/11/18 08:59 Last Admin: 07/26/18 08:47 Dose: 250 mg Furosemide (Lasix) 20 mg PO DAILY [facility] Stop: 09/11/18 08:59 Last Admin: 07/26/18 08:47 Dose: Not Given Gabapentin (Neurontin) 100 mg PO BID [facility] Stop: 09/11/18 08:59 Last Admin: 07/26/18 08:47 Dose: 100 mg Lorazepam (Ativan) 0.5 mg PO Q4HR PRN; Protocol PRN Reason: Anxiety Stop: 08/11/18 19:10 Last Admin: 07/26/18 08:47 Dose: 0.5 mg Nifedipine (Procardia Xl) 60 mg PO DAILY [facility] Stop: 09/11/18 08:59 Last Admin: 07/26/18 08:47 Dose: Not Given Olanzapine (Zyprexa) 10 mg PO BID [facility]; Protocol Stop: 09/15/18 16:59 Last Admin: 07/26/18 08:47 Dose: 10 mg Zolpidem Tartrate (Ambien) 5 mg PO HS PRN PRN Reason: Insomnia Stop: 09/10/18 19:10 Last Admin: 07/24/18 22:23 Dose: 5 mg General: demented HEENT: NC/AT, PERRLA, EOMI Neck: Supple, No JVD, No LAD Lungs: CTAB Cardiovascular: RRR, Normal S1, Normal S2, without murmur Abdomen: soft, non-tender, thin, non-distended, positive bowel sound Extremities: excoriation Neurological: no change Internal Medicine Assmt/Plan - Assessment Assessment: ASSESSMENT AND PLAN: CVA, multi infarct dementia, bacteriuria, hypokalemia, which was corrected, anemia, hypertension, osteoarthritis. - Plan Plan: PLAN: fall precaution We will adjust the patient's antihypertensive medication. The patient is on Plavix. The patient is on diuretics. We will correct electrolyte abnormalities. Continue with current care. We will follow closely Nutritional Asmnt/Malnutr-PDOC - Dietary Evaluation Malnutrition Findings (Please click <Entered> for more info): Nutritional Asmnt/Malnutrition Start: 07/16/18 10: 40 Text: Status: Complete Freq: Protocol: Document 07/16/18 10:40 LCHENG (Rec: 07/16/18 10:43 LCHENG [email or web address]) Nutritional Asmnt/Malnutrition Patient General Information Nutritional Screening Moderate Risk Diagnosis psychosis Pertinent Medical Hx/Surgical Hx stroke, multi infarct dementia , HTN, arthritis, s/p left knee surgery Subjective Information Per EMR, PO intake 100%. Current Diet Order/ Nutrition Support regular Pertinent Medications lasix Pertinent Labs 07/13 Glucose 106 Nutritional Hx/Data Height 1.65 m Height (Calculated Centimeters) 165.1 Current Weight (lbs) 65.771 kg Weight (Calculated Kilograms) 65.8 Weight (Calculated Grams) 77406.9 [place] Body Weight 125 Body Mass Index (BMI) 24.1 Weight Status Approriate GI Symptoms GI Symptoms None Last BM 07/15 Difficult in: None Skin Integrity/Comment: dryness Current %PO Good (75-100%) Estimated Nutritional Goals BEE in Kcals: Using Current wt Calories/Kcals/Kg 25-30 Kcals Calculated 1634-5438 Protein: Using Current wt Protein g/k.8-1 Protein Calculated 53-66 Fluid: ml 1650-1980ml (1ml/kcal) Nutritional Problem No current Nutrition Prob Problem N/A Malnutrition Alert Is there a minimum of two criteria No selected? Query Text:Check all the applicable criteria. A minimum of two criteria are recommended for diagnosis of either severe or non-severe malnutrition. Malnutrition Related to Morbid Obesity Malnutrition related to morbid obesity No Intervention/Recommendation Comments 1. Continue with regular diet as ordered. 2. Monitor PO intake, wt, labs and skin integrity 3. F/U as low risk in 7 days Expected Outcomes/Goals Expected Outcomes/Goals 1. PO intake to meet at least 75% of nutritional needs. 2. Wt stability, skin to remain intact, labs to approach WNL.
--- NOTE | 2018-07-27 01:37 | Progress Notes ---
DATE: 07/26/2018 PSYCHIATRIC PROGRESS NOTE SUBJECTIVE: Staff was spoken to. The patient is interviewed. Mood is noted to be anxious. Affect is constricted. The patient's insight and judgment are noted to be improving. Impulse control seems to be fair today. No side effects to the medications are noted. The patient has been able to verbalize the concerns rather than to act out. ASSESSMENT: The patient is stabilizing. PLAN: To discharge the patient today for followup on an outpatient basis. [facility]# [id number]
--- NOTE | 2018-07-27 14:33 | Progress Notes ---
DATE: 07/26/2018 PSYCHOLOGY PROGRESS NOTE SUBJECTIVE: The patient is seen and is interviewed. Case is discussed with staff. The patient presents with anxiety. The patient is requesting to be discharged and stated that she believes she has been here too long. Staff reports the patient's impulse control seems to be resolving and that there have been no major behavioral problems. OBJECTIVE: MENTAL STATUS EXAMINATION: Mood is anxious and mildly irritable. Affect is constricted. Thought process shows to be confused, but more goal oriented. The patient's behavior shows improvement in impulse control. ASSESSMENT AND PLAN: The patient is approaching baseline stability. We provided positive reinforcement for the patient to stay compliant with her care and treatment. We provided remotivation and encouragement for the patient to verbalize her concerns and to demonstrate emotional and self-regulation. We provided coping strategies for phase of life issues. There is no followup indicated as the patient is scheduled to be discharged today. Prognosis is fair. JOB# [id number]
== END 2018-07-26 15:45 | DRG 885 ==
LOC: GERO2 17:45 → GERO 18:53
DX: F29 Unspecified psychosis not due to a substance or known physiological condition (principal); E87.6 Hypokalemia; M19.90 Unspecified osteoarthritis, unspecified site; I10 Essential (primary) hypertension; R82.71 Bacteriuria; F03.90 Unspecified dementia, unspecified severity, without behavioral disturbance, psychotic disturbance, mood disturbance, and anxiety; D64.9 Anemia, unspecified; F63.9 Impulse disorder, unspecified; Z86.73 Personal history of transient ischemic attack (TIA), and cerebral infarction without residual deficits
CPT/HCPCS: 36415-UA; 80053-TC; 80061-TC; 80164-TC; 81001-TC; 83036-90; 87086-90; G0410; J1200; J1630; J2060; J7051; Z7610